=== PATIENT | female | born 1965 | race Caucasian/White ===

== ENCOUNTER 2024-10-30 11:11 | Inpatient (IN) | payer OTHER, SELFPAY ==
[2024-10-30] VITALS (7 sets, daily range): BP systolic 118–151; BP diastolic 55–86; PULSE 54–87; RESP 13–18; TEMP 36.4–36.8; O2SAT 94–99; BMI 31.9
--- NOTE | ~2024-10-30 | MR_ITS ---
EXAMINATION: MRCP CLINICAL INFORMATION: Right upper quadrant abdominal pain. Acute cholecystitis. TECHNIQUE: Axial and coronal T2 haste sequences. Axial and coronal fat sat haste sequences. Coronal oblique T2 fat-sat single slice. MRCP radial T2 fat-sat sequence. COMPARISON: Correlated to CT dated October 30, 2024. FINDINGS: The common bile duct measures 10 mm in maximum diameter. There is a 1 mm round hypointense signal in the distal common bile duct near the sphincter. The common hepatic duct measures 12 mm. No intraluminal signal abnormality. The gallbladder is prominent/distended. Multiple, at least 3, intraluminal less than 13 mm maximal diameter hypointense signal lesions. Gallbladder wall measures 6 mm. There is edema pattern/pericholecystic fluid. The main pancreatic duct measures 24 mm in maximum diameter. The liver measures 19 cm. The spleen measures 10 cm. No peripancreatic fluid collection. Multifocal cystic lesions in the corticomedullary junction of the kidneys. No hydronephrosis in either kidney. Fat-containing umbilical and periumbilical hernias, moderate volume. No nodular lesions in the adrenal glands. No aneurysm in the abdominal aorta. No gross intestinal obstruction pattern. Hiatal hernia, moderate volume. MR/MR MRCP IMPRESSION: Acute calculous cholecystitis and tiny choledocholithiasis. Hepatomegaly. Hiatal hernia, moderate volume. Fat-containing umbilical and periumbilical hernias. Bilateral renal cysts. Electronically signed by: Shan Roberts MD 10/30/2024 03:40 PM EDT
--- NOTE | ~2024-10-30 | FL_ITS ---
EXAMINATION: FL GUIDANCE ONLY HISTORY: ERCP COMPARISON: Correlation is made with an MRCP dated 10/30/2024. TECHNIQUE: Fluoroscopy time: 4.3 minutes. Cumulative Dose: 115 mGy. DAP: 31.3 mGym2 Images: 12. FINDINGS: Images demonstrate a normal caliber common bile duct. No definite filling defects are identified. FL/FL guidance in OR IMPRESSION: Fluoroscopy during procedure. Please see procedure report for additional information. Electronically signed by: Nickolas Purdy MD 10/31/2024 03:13 PM EDT
--- NOTE | ~2024-10-30 | CT_ITS ---
EXAMINATION: CT ABDOMEN PELVIS WITH IV CONTRAST HISTORY: abd pain COMPARISON: There are no prior studies for comparison. TECHNIQUE: CT scan of the abdomen and pelvis was performed following administration of 85 mL Omnipaque 350 using standard departmental protocol. Coronal and sagittal reformatted images were generated and reviewed. Oral contrast material was not administered at the request of the referring physician. This CT exam was performed with one or more of the following dose reduction techniques: automated exposure control, adjustment of the mA and/or kV according to patient size, use of iterative reconstruction technique. DLP: 905 mGy-cm FINDINGS: LOWER CHEST: There is subsegmental atelectasis versus scarring at the right lung base. There is minimal dependent atelectasis at the left lung base. There is no pleural effusion. CARDIOVASCULATURE: The heart is normal in size. There is no pericardial effusion. LIVER: The liver is normal in size and contour, but demonstrates diffusely decreased attenuation, consistent with steatosis. No liver mass is identified. The hepatic and portal veins are patent. GALLBLADDER / BILE DUCTS: The gallbladder is distended and multiple radiolucent calculi are noted. There is moderate wall thickening/pericholecystic fluid and moderate surrounding inflammatory stranding, distant with acute cholecystitis. There is no intra or extrahepatic biliary ductal dilatation. SPLEEN: The spleen is normal in size. No focal splenic lesion is identified. PANCREAS: The pancreas is unremarkable in appearance. ADRENAL GLANDS: Within normal limits. KIDNEYS/RETROPERITONEUM: No renal calculi are identified. There is no hydronephrosis. There are multiple bilateral renal cysts measuring up to 10 mm in size. LYMPH NODES: No abdominal or pelvic lymphadenopathy. VASCULATURE: The abdominal aorta is normal in caliber. MESENTERY/PERITONEUM: No free fluid. No masses. There is no free intraperitoneal gas. STOMACH: There is a small hiatal hernia. The remainder of the stomach is collapsed. SMALL BOWEL: The small bowel is normal in caliber. COLON: There is diverticulosis of the descending and sigmoid colon, without evidence of diverticulitis. APPENDIX: Normal. URINARY BLADDER/PELVIC ORGANS: The urinary bladder is collapsed, limiting evaluation. The patient is status post hysterectomy. BONES / SOFT TISSUES: There is a fat-containing umbilical hernia. The bones are intact. CT/CT abdomen pelvis w IV con IMPRESSION: Acute cholecystitis as described. Electronically signed by: Nickolas Purdy MD 10/30/2024 01:38 PM EDT
--- NOTE | 2024-10-30 11:26 | ED_ITS ---
HPI - General Adult General Chief complaint: Abdominal Pain Stated complaint: BACK PAIN SINCE MONDAY,?BLOOD IN URINE PER EMS Time Seen by Provider: 10/30/24 11:26 Source: patient, family (patient's and son) and EMS Mode of arrival: EMS Limitations: no limitations History of Present Illness ED Provider: Stephani Milan PA-C HPI narrative: 59 year old female with PMHx HTN presenting to the ED c/o sudden onset epigastric pain radiating to the R upper back since last night. Reports thought she might have pulled a lower back muscle Monday after reaching for wipes while sitting on the toilet, however that constant, dull pain, became much worse suddenly last night. Reports associated symptoms of N/V over 20 times today, feeling hot, but did not check temp. Reports last BM last night. Reports hx umbilical hernia surgery 3+ years ago, partial hysterectomy, and kidney stones 25y+. Denies CP, SOB, diarrhea, numbness/tingling, dysuria. Denies alcohol use, drug use, smoking. Onset (ago): hour(s) Location: abdomen Radiation: back Quality: sharp Pain Consistency: constant Relieving factors: none Associated symptoms: nausea/vomiting Treatments prior to arrival: NSAID Related Data Allergies Allergy/AdvReac Type Severity Reaction Status Date / Time No Known Allergies Allergy Verified 10/30/24 11:28 Review of Systems 2 Constitutional: Constitutional: Reports no additional constitutional complaints, Denies night sweats and Denies weight loss Comments: Reports feeling hot , did not check temp. Eyes: Eyes: Reports no additional eye complaints, Denies blurry vision, Denies change in vision, Denies diplopia, Denies eye discharge, Denies loss of vision and Denies eye pain ENT: Denies dizziness Cardiovascular: Cardiovascular: Reports no additional cardiovascular complaints, Denies chest pain, Denies lightheadedness, Denies Loss of Consciousness and Denies dyspnea Respiratory: Respiratory: Reports no additional respiratory complaints and Denies dyspnea Gastrointestinal: Gastrointestinal: Reports no additional gastrointestinal complaints, Reports abdominal pain, Denies melena, Denies hematochezia, Denies change in bowel habits, Denies change in stool character, Denies diarrhea, Reports nausea and Reports vomiting Comments: Reports epigastric pain radiating to R upper back. Genitourinary: Genitourinary: Denies urinary frequency, Denies dysuria, Denies urinary incontinence, Denies urinary hesitancy and Denies urinary urgency Musculoskeletal: Musculoskeletal: Reports no additional musculoskeletal complaints, Denies numbness and Denies tingling Neurologic: Denies dizziness, Denies loss of vision, Denies numbness and Denies tingling Psychiatric: Psychiatric: Reports no additional psychiatric complaints Endocrine: Endocrine: Reports no additional endocrine complaints Hematologic/Lymphatic: Hematologic/Lymphatic: Reports no additional hematologic/lymphatic complaints Allergic/Immunologic: Allergic/Immunologic: Reports no additional allergic/immunologic complaints PMFSH Past Medical History Attestation statement: The following information was validated with the patient. (all information validated with the patient's and son) Source: old records reviewed, obtained from family (Patient's and son provided additional history and confirmed the history provided by the patient.) and nursing notes reviewed Social History Social History Smoked in Last 30 Days: No Use of substances other than those prescribed or required for medical reasons: No Advance Directives: No Advance Directives Information Provided: Yes Do you have a plan to hurt others: No Plan Physical Exam ED Vital Signs: Vital Signs - 24 hr 10/30/24 11:25 10/30/24 11:51 10/30/24 13:44 Temperature 98.1 F Pulse Rate 82 83 87 Respiratory Rate 18 16 16 Blood Pressure 151/55 H 150/86 H 139/75 Pulse Oximetry 99 94 Oxygen Delivery Method Room Air Room Air BMI result Body Mass Index 31.9 Const General: cooperative, no acute distress, alert and awake Nutritional Appearance: well nourished Orientation/consciousness: patient oriented x3 Limitations: no limitations [facility] Head: Yes normal to inspection and Yes atraumatic Ears: hearing grossly normal bilaterally and external ears normal General nose exam: Normal external nose present, no nasal discharge noted and no epistaxis Face and sinus: Yes normal facial exam, No abrasion and No laceration Mouth: Normal oral and palatal mucosa present, no drooling and no muffled voice Eyes General: appearance normal, both eyes and all related structures Periorbital: periorbital findings normal Eyelids: Yes eyelids normal Conjunctivae: conjunctivae normal Pupils: Equal, round and reactive pupils present EOM: EOMs intact bilaterally Neck Neck: Yes normal visual inspection, Yes full ROM and Yes no lymphadenopathy Chest Chest palpation & inspection: normal inspection of the chest Resp Effort & Inspection: normal respiratory effort and able to speak in complete sentences Cardio Rate: regular rate Rhythm: regular rhythm GI Other: Umbilical hernia surgical scar noted. Inspection: Yes normal to inspection, No abdominal wall ecchymosis and Yes scar Palpation (GI): Soft to palpation, not firm, Tenderness to palpation present (GI) in the epigastrum and in the RUQ, Guarding due to palpation present (GI) (mild guarding to epigastric area) and not rigid General: Yes no CVA tenderness Back/Spine/Pelvis Other: Back non-tender to palpation. No bruising, erythema noted on exam. No CVA tenderness. Normal ROM of UE extremities without pain. Back: no CVA tenderness, No erythema, No ecchymosis and No back tenderness Neuro General: patient oriented x3, moves all extremities and CN's II-XI intact bilaterally Cranial nerves: Yes Equal, round and reactive pupils present Cognition (Neuro): normal cognition Extrem General: Yes normal to inspection, Yes full ROM and Yes capillary refill normal Psych Appearance: grossly normal Mental Status: mental status grossly normal Affect: normal affect Attitude: cooperative Thought process: Normal thought process present Thought content: Normal thought content present Insight: Good insight present (Psych) Medications Administered Discontinued Medications Generic Name Dose Route Start Last Admin Trade Name Patricia PRN Reason Stop Dose Admin Iohexol 100 ml 10/30/24 13:20 10/30/24 13:20 Iohexol 350 Mg/Ml 100 Ml Infus..Btl IV 10/30/24 13:21 85 ml ONCE ONE Administration Ketorolac Tromethamine 15 mg 10/30/24 11:39 10/30/24 11:43 Ketorolac Tromethamine 15 Mg/Ml Vial IVPUSH 10/30/24 11:40 15 mg ONCE ONE Administration Morphine Sulfate 4 mg 10/30/24 11:38 10/30/24 11:44 Morphine Sulfate 4 Mg/Ml Cartridge IVPUSH 10/30/24 11:39 4 mg ONCE ONE Administration Protocol Morphine Sulfate 4 mg 10/30/24 13:48 10/30/24 14:20 Morphine Sulfate 4 Mg/Ml Cartridge IVPUSH 10/30/24 13:49 4 mg ONCE ONE Administration Protocol Ondansetron HCl 4 mg 10/30/24 11:38 10/30/24 11:44 Ondansetron Hcl 4 Mg/2 Ml Vial IVPUSH 10/30/24 11:39 4 mg ONCE ONE Administration Medical Decision Making Medical Decision Making [facility] Narrative: Patient is a 59 year old assigned female at with a history of HTN presenting to the emergency department today with abdominal pain, nausea, and vomiting. Patient's physical exam was as noted in the physical exam portion of this note. Patient's blood work showed WBC 11.2, total bili 2.5, direct bili 1.6, AST 228, ALT 198, and an Alk phos of 274. Patient's urine showed no acute process. Patient's EKG was unremarkable. Patient's CT abd/pelvis showed an acute cholecystitis as well as multiple gallstones. I spoke with Dr. Wesley the general surgeon liaison planner who recommended GI consult, MRCP, and admission to the medical team. I spoke with Dr. Bruno who agreed with stat MRCP. I spoke with the hospitalist team who agreed to admission. I explained my physical exam findings as well as all test results to the patient, the patient's son, and the patient's . I answered all questions asked by the patient, the patient's son, and the patient's . Patient received multiple doses of IV morphine which, upon re-evaluation, she stated it helped her symptoms some. Patient verbalized agreement and understanding with this treatment plan and admission. Differential Diagnosis Differential Diagnoses: The differential diagnosis associated with the presentation includes Acute cholecystitis Choledocolithiasis Gallstones Abdominal pain Admission/Observation Consideration of admission/observation: Escalation of care including admission/observation considered Patient admitted as noted in the MDM Rationale portion of this note. Consult Healthcare Provider Management of the patient was discussed with: Hospitalist (agreed to admission as noted in the MDM Rationale portion of this note. ) and Apartment Maintenance (Spoke with GI and general surgery as noted in the MDM Rationale portion of this note. ) Lab Data [facility] Lab Attestation statement: I reviewed the patient's lab results. My interpretation of these results are in the MDM Rationale portion of this note. 10/30/24 12:50 10/30/24 12:50 Labs: Lab Results 10/30/24 10/30/24 Range/Units 12:50 13:43 WBC 11.2 H (4.8-10.8) X10*3/uL RBC 4.78 (4.20-5.50) X10*6/uL Hgb 13.9 (12.0-16.0) g/dl Hct 41.3 (37.0-47.0) % MCV 86.4 (80.0-98.0) fL MCH 29.1 (27.0-33.0) pg MCHC 33.7 (31.0-35.0) g/dl RDW 12.6 (11.0-16.0) % Plt Count 256 (160-400) X10*3/uL MPV 10.5 (9.4-12.3) fL Immature Gran % (Auto) 0.4 (0.0-0.4) % Neut % (Auto) 85.4 H (45-73) % Lymph % (Auto) 5.9 L (20-40) % [place] % (Auto) 7.2 (2-11) % Eos % (Auto) 0.6 (0-4) % Baso % (Auto) 0.5 (0-2) % Lymph # (Auto) 0.7 L (1.2-4.9) X10*3/uL [place] # (Auto) 0.8 (0.1-1.2) X10*3/uL Eos # (Auto) 0.1 (0.0-0.4) X10*3/uL Baso # (Auto) 0.1 (0.0-0.2) X10*3/uL Abs Immat Gran (auto) 0.05 H (0.00-0.03) X10*3/uL Absolute Neuts (auto) 9.6 H (2.0-8.3) x10*3/uL Absolute Nucleated RBC 0.000 (0.0-0.012) X10*3/uL Nucleated RBC % (auto) 0.0 (0.0-0.2) /100WBC PT 12.1 (10.9-12.4) SEC INR 1.0 (0.9-1.1) Sodium 139 (135-145) mmol/L Potassium 3.7 (3.3-5.1) mmol/L Chloride 107 (96-108) mmol/L Carbon Dioxide 24 (22-29) mmol/L Anion Gap 12 (12-20) BUN 14 (9-16) mg/dL Creatinine 0.62 (0.5-1.4) mg/dL Estim Creat Clear Calc 98.9 Estimated GFR > 60 Random Glucose 119 H (60-115) mg/dL Calcium 9.8 (8.4-10.2) mg/dL Magnesium 2.1 (1.6-2.6) mg/dL Total Bilirubin 2.5 H (0.0-1.0) mg/dL Direct Bilirubin 1.6 H (0.0-0.5) mg/dL AST 228 H (5-31) U/L ALT 198 H (0-31) U/L Alkaline Phosphatase 274 H (39-117) U/L Troponin I High Sens < 2.7 (<3.5-17.0) ng/L Total Protein 7.1 (6.5-8.0) g/dL Albumin 4.0 (3.5-5.0) g/dL Amylase 31 (28-100) U/L Lipase 17 (8-78) U/L Urine Color Panther Urine Appearance Clear Urine pH 7.0 (5.0-9.0) Ur Specific [place] 1.010 (1.005-1.025) Urine Protein 100 (2+) H (Neg-Trace) mg/dL Urine Glucose (UA) Negative (Negative) mg/dL Urine Ketones >=80 (Negative) mg/dL Urine Blood Negative (Negative) Urine Nitrite See Note (Negative) Ur Leukocyte Esterase Negative (Negative) Urine RBC 0-2 (0-2) /HPF Urine WBC 0-5 (0-5) /HPF Ur Squamous Epith Cells 11-20 (0-2) /HPF Urine Bacteria Trace (None Seen) Hyaline Casts 0-2 (0-2) /LPF Influenza Type A (PCR) NEGATIVE (Negative) Influenza Type B (PCR) NEGATIVE (Negative) RSV RNA Qual (PCR) NEGATIVE (Negative) SARS-CoV-2 RNA (RT-PCR) NEGATIVE (Negative) Independent Interpretation I performed an independent interpretation of an: EKG and CT Scan Interpretation: My interpretation is in agreement with the radiologist's impression of this imaging study. L Report Number: [id number]: Total DLP = 905.00 mGy-cm EXAMINATION: CT ABDOMEN PELVIS WITH IV CONTRAST HISTORY: abd pain COMPARISON: There are no prior studies for comparison. TECHNIQUE: CT scan of the abdomen and pelvis was performed following administration of 85 mL Omnipaque 350 using standard departmental protocol. Coronal and sagittal reformatted images were generated and reviewed. Oral contrast material was not administered at the request of the referring physician. This CT exam was performed with one or more of the following dose reduction techniques: automated exposure control, adjustment of the mA and/or kV according to patient size, use of iterative reconstruction technique. DLP: 905 mGy-cm FINDINGS: LOWER CHEST: There is subsegmental atelectasis versus scarring at the right lung base. There is minimal dependent atelectasis at the left lung base. There is no pleural effusion. CARDIOVASCULATURE: The heart is normal in size. There is no pericardial effusion. LIVER: The liver is normal in size and contour, but demonstrates diffusely decreased attenuation, consistent with steatosis. No liver mass is identified. The hepatic and portal veins are patent. GALLBLADDER / BILE DUCTS: The gallbladder is distended and multiple radiolucent calculi are noted. There is moderate wall thickening/pericholecystic fluid and moderate surrounding inflammatory stranding, distant with acute cholecystitis. There is no intra or extrahepatic biliary ductal dilatation. SPLEEN: The spleen is normal in size. No focal splenic lesion is identified. PANCREAS: The pancreas is unremarkable in appearance. ADRENAL GLANDS: Within normal limits. KIDNEYS/RETROPERITONEUM: No renal calculi are identified. There is no hydronephrosis. There are multiple bilateral renal cysts measuring up to 10 mm in size. LYMPH NODES: No abdominal or pelvic lymphadenopathy. VASCULATURE: The abdominal aorta is normal in caliber. MESENTERY/PERITONEUM: No free fluid. No masses. There is no free intraperitoneal gas. STOMACH: There is a small hiatal hernia. The remainder of the stomach is collapsed. SMALL BOWEL: The small bowel is normal in caliber. COLON: There is diverticulosis of the descending and sigmoid colon, without evidence of diverticulitis. APPENDIX: Normal. URINARY BLADDER/PELVIC ORGANS: The urinary bladder is collapsed, limiting evaluation. The patient is status post hysterectomy. BONES / SOFT TISSUES: There is a fat-containing umbilical hernia. The bones are intact. CT/CT abdomen pelvis w IV con IMPRESSION: Acute cholecystitis as described. Electronically signed by: Nickolas Purdy MD 10/30/2024 01:38 PM EDT RP Dictated By: Nickolas Purdy MD Signed By: Electronically signed by Nickolas Purdy MD 10/30/24 1338 I independently interpreted this EKG and am in agreement with the below findings: Vent. Rate: 77 BPM Atrial Rate: 77 BPM P-R Int: 144 ms QRS Dur: 82 ms QT Int: 394 ms P-R-T Axes: 27 -22 14 degrees QTcB Int: 445 ms Normal sinus rhythm Minimal voltage criteria for LVH, may be normal variant (R in aVL) Nonspecific ST abnormality Electronically Signed By: Johnnie Mccarthy Dictated By: Johnnie Mccarthy MD Signed By: Electronically signed by Johnnie Mccarthy MD 10/30/24 1423 Radiology Impression Discussion of test interpretation with radiology: I have reviewed the radiologist's reading. Independent Historian Clinical information obtained from an independent historian. History obtained from or confirmed by: Spouse (patient's provided additional history and confirmed the history provided by the patient.) and EMS (EMS provided additional history and confirmed the history provided by the patient.) Critical Care Time Critical Care Time Critical Care Time: Yes Total Critical Care Time: 48 Attestation: I spent 48 minutes of Critical Care Time with this patient. This does not include time spent on separately reported billable procedures. Discharge Plan Discharge Clinical Impression: Cholecystitis, Gallstones Patient Disposition: Admitted As Inpatient Print Language: Omani
--- NOTE | 2024-10-30 11:37 | ECG_ITS ---
Test Reason : ABDOMINAL PAIN Blood Pressure : */* mmHG Vent. Rate : 77 BPM Atrial Rate : 77 BPM P-R Int : 144 ms QRS Dur : 82 ms QT Int : 394 ms P-R-T Axes : 27 -22 14 degrees QTcB Int : 445 ms Normal sinus rhythm Minimal voltage criteria for LVH, may be normal variant ( R in aVL ) Nonspecific ST abnormality Abnormal ECG No previous ECGs available Referred By: Stephani Milan Electronically Signed By: Johnnie Mccarthy
[2024-10-30] MEDS: Ketorolac Tromethamine 15 MG/ML VIAL IVPUSH (11:43)
[2024-10-30] MEDS: Morphine Sulfate 4 MG/ML CARTRIDGE IVPUSH ×2 (11:44→14:20)
[2024-10-30] MEDS: ondansetron HCL 4 MG/2 ML VIAL IVPUSH (11:44)
[2024-10-30 12:54] LABS: MANUAL DIFF FLAG NO
--- NOTE | 2024-10-30 12:54 | PC.NURSE ---
Labs drawn/sent.
[2024-10-30 12:56] LABS: Basophils Absolute Auto 0.1 X10*3/uL (0.0-0.2); Basophils Percent Auto 0.5 % (0-2); Eosinophils Absolute Auto 0.1 X10*3/uL (0.0-0.4); Eosinophils Percent Auto 0.6 % (0-4); Hematocrit 41.3 % (37.0-47.0); Hemoglobin 13.9 g/dl (12.0-16.0); Imm Gran Abs Auto 0.05 X10*3/uL (0.00-0.03); Imm Gran Pct Auto 0.4 % (0.0-0.4); Lymphocytes Absolute Auto 0.7 X10*3/uL (1.2-4.9); Lymphocytes Percent Auto 5.9 % (20-40); Mean Corpuscular HGB Conc 33.7 g/dl (31.0-35.0); Mean Corpuscular Hemoglobin 29.1 pg (27.0-33.0); Mean Corpuscular Volume 86.4 fL (80.0-98.0); Mean Platelet Volume 10.5 fL (9.4-12.3); Monocytes Absolute Auto 0.8 X10*3/uL (0.1-1.2); Monocytes Percent Auto 7.2 % (2-11); Neutrophils Absolute Auto 9.6 x10*3/uL (2.0-8.3); Neutrophils Percent Auto 85.4 % (45-73); Platelet Count 256 X10*3/uL (160-400); Red Blood Count 4.78 X10*6/uL (4.20-5.50); Red Cell Distribution Width 12.6 % (11.0-16.0); White Blood Count 11.2 X10*3/uL (4.8-10.8)
[2024-10-30 13:06] LABS: Prothrombin Time 12.1 SEC (10.9-12.4)
[2024-10-30 13:11] LABS: Alanine Aminotransferase 198 U/L (0-31); Alkaline Phosphatase 274 U/L (39-117); Anion Gap 12 (12-20); Aspartate Amino Transferase 228 U/L (5-31); Bilirubin Total 2.5 mg/dL (0.0-1.0); Blood Urea Nitrogen 14 mg/dL (9-16); Calcium 9.8 mg/dL (8.4-10.2); Carbon Dioxide 24 mmol/L (22-29); Chloride 107 mmol/L (96-108); Creatinine Clr Calc Pharmacy 98.9; Estimated Glomerular Filt Rate > 60; Glucose Random 119 mg/dL (60-115); Magnesium 2.1 mg/dL (1.6-2.6); Potassium 3.7 mmol/L (3.3-5.1); Sodium 139 mmol/L (135-145); Total Protein 7.1 g/dL (6.5-8.0)
[2024-10-30] MEDS: iohexoL 350 MG/ML 100 ML INFUS..BTL IV (13:20)
[2024-10-30 13:23] LABS: Troponin-I High Sensitivity < 2.7 ng/L (<3.5-17.0)
[2024-10-30 13:35] LABS: Influenza A PCR NEGATIVE (Negative); Influenza B PCR NEGATIVE (Negative); Resp Syncy Virus RNA Qual PCR NEGATIVE (Negative); SARS COV2 PCR INHOUSE NEGATIVE (Negative)
[2024-10-30 13:49] LABS: Amylase 31 U/L (28-100); Bilirubin Direct 1.6 mg/dL (0.0-0.5); Lipase 17 U/L (8-78)
[2024-10-30 13:55] LABS: Appearance Urine Clear; Color Urine Orange; Glucose Urine UA Negative (Negative); Leukocyte Esterase Urine Negative (Negative); UMIC TRIGGER UACC YES; Urine Blood Negative (Negative); Urine Ketones >=80 mg/dL (Negative); Urine Protein 100 (2+) mg/dL (Neg-Trace)
[2024-10-30 14:02] LABS: Bacteria Urine Trace (None Seen); Hyaline Casts Urine 0-2 /LPF (0-2); RBC Urine 0-2 /HPF (0-2); WBC Urine 0-5 /HPF (0-5)
--- OUTSIDE RECORDS SUMMARY | 2024-10-30 14:30 | XMS_ITS | Referral Summary ---
Author Organization [facility] Address [address] [place] [address] Care Team Providers Care Aircraft Navigator Name Role Phone Unavailable Primary Care Provider Unavailabl e Allergies No known active allergies Medications folic acid (FOLVITE) 1 mg tablet 07/26/2021 Active methotrexate (TREXALL) 2.5 mg tablet 2.5 mg once a week. 8 tablets 4 tablets in AM 4 tablets PM. Sundays. 06/28/2021 Active multivitamin capsule Take 1 capsule by mouth once a day. Active fluocinolone (Retisert) 0.59 mg implant insert 1 kit by implant route once. 1 each 09/24/2021 12:12 PM EST 09/06/2021 Active Immunizations Immunization Administration Dates Next Due Covid-19, Pfizer, mRNA, [place] valent, PF 30 mcg/0.3 mL dose (for ages 12 and older) 11/10/2020,10/20/2020 Social History Tobacco Use Types Packs/Day Years Used Date Smoking Tobacco: Never Smokeless Tobacco: Never Alcohol Use Standard Drinks/Week Comments Yes 0 (1 standard drink = 0.6 oz pur e alcohol) a glass of wine once a month Comments No Sex and Gender Information Value Date Recorded Sex Assigned at Female 08/26/2021 3:06 PM EST Legal Sex Female 8:13 AM EST Gender Identity Female 08/26/2021 3:06 PM EST Sexual Orientation Straight 10/02/2021 8: 27 AM EST Last Filed Vital Signs Vital Sign Reading Time Taken Comments Blood Pressure 154/93 10/05/2021 11:38 AM EDT Pulse 73 10/05/2021 11:38 AM EDT Temperature 36.7 ??C (98 ??F) 10/05/2021 11:38 AM EDT Respiratory Rate 20 10/05/2021 11:38 AM EDT Oxygen Saturation 95% 10/05/2021 11:38 AM EDT Inhaled Oxygen Concentration - - Weight 76.4 kg (168 lb 6.4 oz) 10/05/2021 10:17 AM EDT Height 162.6 cm (5' 4 ) 08/26/2021 2:57 PM EST Body Mass Index 28.91 08/26/2021 2:57 PM EST Plan of Treatment Not on file Medical Devices Implanted Type Area Turning Machine Set Up Operator Device Identifier Shelf Expiration Date Model / Serial / Lot Retisert Implanted:Qty: 1 on 10/05/2021 by Eddy Deleon MD at [facility] 12/21/2022 [id number] -[id number] / [id number] / [id number] Insurance [facility] Advance Directives * Presumed Full Code (Latest Code Status on File) Date Activated Date Inactivated Comments 10/05/2021 10:29 AM 10/05/2021 2:19 PM
--- OUTSIDE RECORDS SUMMARY | 2024-10-30 14:31 | XMS_ITS | Clinical Summary ---
Author Organization [facility] Address [address] [place] [address] Care Team Providers Care Teletypewriter Installer Name Role Phone Unavailable Primary Care Provider [...] Administration Dates Next Due Covid-19, Pfizer, mRNA, [place] valent, PF 30 mcg/0.3 mL dose (for [...] 08/26/2021 2:57 PM EST Plan of Treatment Health Maintenance Due Date Last Done Comments Cervical Cancer Screening 1965 Cologuard 1965 Colon Cancer Screening 1965 Colonoscopy 1965 FOBT / Fit Test 1965 HIV Screening 1965 HPV and Pap Smear 1965 Pap Smear 1965 Sigmoidoscopy 1965 Hepatitis B Vaccines (1 of 3 - 19+ 3-dose series) 1984 DTaP,Tdap,and Td Vaccines (1 - Tdap) 1987 Pneumococcal Vaccine: 50+ Ye ars (1 of 1 - PCV) 2015 Zoster Vaccines (1 of 2) 2015 COVID-19 Vaccine (3 - 2023- season) 2024, 10/20/2020 Alcohol/Substance Use Screening 07/24/2024 Influenza Vaccine (Season Ended) 2025 04/15/20, 04/28/2018 RSV Vaccine (60+ years old a nd patients) (1 - 1-dose 75+ series) 2040 Medical Devices Implanted Type Area [employer] Member Device Identifier Shelf Expiration Date Model / Serial / Lot Retisert Implanted:Qty: 1 on 10/05/2021 by Eddy Deleon MD at [facility] 12/21/2022 [id number] / [id number] / [id number] Insurance [facility] Advance Directives * Presumed Full Code (Latest Code Status on File) Date Activated Date Inactivated Comments 10/05/2021 10:29 AM 10/05/2021 2:19 PM
--- NOTE | 2024-10-30 14:42 | PC.NURSE ---
Pt to MRCP at this time.
--- NOTE | 2024-10-30 14:50 | P.CONGS_ITS ---
History of Present Illness Consult details Consult date: 10/30/24 Requesting physician: Stephani Milan Narrative: 59-year-old female patient presenting with a one-week history of abdominal pain beginning in the right back and gradually radiating to the right upper quadrant. She initially thought this was from a pulled muscle however for the past 24 hours the pain became more severe and located more in the right upper quadrant and epigastrium. She denies a similar episode of abdominal pain but has had a previous episode of kidney stones. She reports nausea and vomiting but denies fever or chills. Her appetite has been reduced for the past week. She reports being constipated as well. She was unaware of any changes in the color of her skin, urine or stool. She subsequently presented to the emergency department for further evaluation. She was noted to be tender in the right upper quadrant with a positive Rizvi sign. Laboratories reveal a WBC of 11.2, glucose of 119, total bilirubin 2.5, direct bilirubin 1.6, AST 228, ALT 198, alkaline phosphatase 274. The CT abdomen and pelvis was reviewed. Gallbladder was noted to be markedly thickened with a wall thickness of approximately 0.7 cm. No definite radiopaque stones were identified but there is surrounding inflammatory changes around the gallbladder. Common bile duct appears to be dilated, measuring approximately 1.2 cm in the pancreatic head. No definite filling defect is identified. Patient was admitted to the hospitalist service for further management of the obstructive jaundice, acute cholecystitis and possible common bile duct obstruction. Review of Systems 2 Review of Systems: Yes all other systems are reviewed and are negative Constitutional: Constitutional: Denies chills, Denies fever(s) and Reports poor appetite Gastrointestinal: Gastrointestinal: Reports abdominal pain, Reports constipation, Denies diarrhea, Reports nausea and Reports vomiting PMFSH Social History Social History Smoked in Last 30 Days: No Use of substances other than those prescribed or required for medical reasons: No Advance Directives: No Advance Directives Information Provided: Yes Do you have a plan to hurt others: No Plan Meds Allergies Allergy/AdvReac Type Severity Reaction Status Date / Time No Known Allergies Allergy Verified 10/30/24 11:28 Physical Exam 2 Vital Signs: Vital Signs: Last Vital Signs Temp 98.1 F 10/30/24 11:25 Pulse 87 10/30/24 13:44 Resp 16 10/30/24 13:44 BP 139/75 10/30/24 13:44 Pulse Ox 94 10/30/24 13:44 O2 Del Method Room Air 10/30/24 13:44 BMI result Body Mass Index 31.9 Const: General: cooperative and no acute distress Nutritional Appearance: w ell nourished Orientation/consciousness: patient oriented x3 Limitations: no limitations HEENT: Head: Yes normocephalic and Yes atraumatic Ears: hearing grossly normal bilaterally Resp: Effort & Inspection: normal respiratory effort, no audible wheezes, no cough and no respiratory distress Cardio: Jugular venous distension: no JVD GI: Inspection: Yes normal to inspection Palpation (GI): Soft to palpation, Tenderness to palpation present (GI) in the RUQ and Rizvi's sign positive, no guarding, not rigid and No hepatosplenomegaly present Percussion: Yes normal to percussion Auscultation: normal bowel sounds Rectal Exam - Female: d eferred Skin: Other: Warm, dry, no rash Neuro: General: patient oriented x3 Extrem: General: Yes no clubbing, cyanosis or edema Results Labs 10/30/24 12:50 10/30/24 12:50 Labs: Abnormal lab results 10/30/24 10/30/24 Range/Units 12:50 13:43 WBC 11.2 H (4.8-10.8) X10*3/uL Neut % (Auto) 85.4 H (45-73) % Lymph % (Auto) 5.9 L (20-40) % Lymph # (Auto) 0.7 L (1.2-4.9) X10*3/uL Abs Immat Gran (auto) 0.05 H (0.00-0.03) X10*3/uL Absolute Neuts (auto) 9.6 H (2.0-8.3) x10*3/uL Random Glucose 119 H (60-115) mg/dL Total Bilirubin 2.5 H (0.0-1.0) mg/dL Direct Bilirubin 1.6 H (0.0-0.5) mg/dL AST 228 H (5-31) U/L ALT 198 H (0-31) U/L Alkaline Phosphatase 274 H (39-117) U/L Urine Protein 100 (2+) H (Neg-Trace) mg/dL Short CBC 10/30/24 Range/Units 12:50 WBC 11.2 H (4.8-10.8) X10*3/uL Hgb 13.9 (12.0-16.0) g/dl Hct 41.3 (37.0-47.0) % Plt Count 256 (160-400) X10*3/uL BMP 10/30/24 12:50 Sodium 139 Potassium 3.7 Chloride 107 Carbon Dioxide 24 BUN 14 Creatinine 0.62 Calcium 9.8 Liver Function 10/30/24 Range/Units 12:50 Total Bilirubin 2.5 H (0.0-1.0) mg/dL Direct Bilirubin 1.6 H (0.0-0.5) mg/dL AST 228 H (5-31) U/L ALT 198 H (0-31) U/L Alkaline Phosphatase 274 H (39-117) U/L Albumin 4.0 (3.5-5.0) g/dL Urine 10/30/24 Range/Units 13:43 Urine Color [place] Urine Appearance Clear Urine pH 7.0 (5.0-9.0) Ur Specific [place] 1.010 (1.005-1.025) Urine Protein 100 (2+) H (Neg-Trace) mg/dL Urine Glucose (UA) Negative (Negative) mg/dL All other labs normal. Imaging Abdomen CT scan report/results: image reviewed CT scan - pelvis: image reviewed Assessment and Plan (1) Cholecystitis: Status: Acute (2) Gallstones: Status: Acute (3) Choledocholithiasis: Status: Acute Plan 59-year-old female patient with a one-week history of abdominal pain in the right upper quadrant increased over the past 24 hours associated with nausea and vomiting. Examination revealed tenderness in the right upper quadrant with a positive Rizvi sign. Laboratories reveal elevated bilirubin and transaminases suggestive of a common bile duct stone. CT abdomen and pelvis does show evidence of cholecystitis with wall thickening of the gallbladder. My evaluation of the CT does seem to indicate dilated distal common bile duct suggestive of a distal common bile duct stone. No definite stone is identified however. Recommend further evaluation with MRCP. Gastroenterology consultation was also recommended. Patient will probably require laparoscopic cholecystectomy once the common bile duct is determined to be clear of obstruction. Patient expressed understanding and agrees with the plan. Procedures Date of Service Date of Service: 10/30/24
--- NOTE | 2024-10-30 15:57 | PM.EVENT ---
Event Note Date of Service: 10/30/24 Event Note: GI consult dictated ERCP planned for further evaluation/treatment of CBD stone seen on MRI. Time Spent With Patient Time: Total time managing care of this patient today ____ minutes.
[2024-10-30] MEDS: HYDROmorphone HCl 1 MG/ML SYRINGE IVPUSH (16:05)
--- NOTE | 2024-10-30 16:20 | MHC.SHP ---
Pre-Procedural Eval Section A - 24 Hr Update-Section A only Date of Service: 10/30/24 The patient is an INPATIENT: Yes Changes since office visit: No Cold of Flu in the past 2 weeks, No New Medical Problems, No Changes in Medication and No Patient answered all questions The patient has been examined within 24 hours of the surgical procedure. The History & Physical has been completed within 30 days and I have reviewed it.: Yes Section B - Complete if H&P > 30 days Chief Complaint: BACK PAIN SINCE MONDAY,?BLOOD IN URINE PER EMS Allergies: Allergies Allergy/AdvReac Type Severity Reaction Status Date / Time No Known Allergies Allergy Verified 10/30/24 11:28 Plan I have reviewed the history and physical and performed a pertinent physical examination on my patient. No changes have occurred unless specified. Time Spent With Patient Time: Total time managing care of this patient today ____ minutes.
[2024-10-30] MEDS: cefTRIAXone sodium 1 GM VIAL IVPUSH (16:34)
--- NOTE | 2024-10-30 17:43 | PC.NURSE ---
Per GI, indomethacin to be given prior to procedure which is scheduled for 10/31. Pharmacy alerted to retime med to tomorrow and med sent back. Family requests they be alerted when pt is moved to a room and has a procedure time.
--- NOTE | 2024-10-30 17:52 | P.HPHOSP_ITS ---
History of Present Illness Date of Service: 10/30/24 Attending physician on admission: [facility] Chief Complaint: ruq pain 59-year-old female with history of hypertension, cataracts, nephrolithiasis, in autoimmune condition on methylphenidate (?SLE) presented to the ED earlier today accompanied by her son and for evaluation of right upper quadrant pain with associated nausea and vomiting ongoing since last night. She states she also had what she describes as a muscle strain in the right flank 5 days ago but states this did not radiate to the right upper quadrant. At its worse, reports the pain was a 10/10 now a 0/10 following hydromorphone. She denies any diarrhea. Has not had any further vomiting episodes since this morning. Denies any fevers, chills. No history of gallstone disease/stones. She does not consume any regular alcohol. No cigarette smoking or drugs. In the ED, has had stable vital signs though was initially hypertensive to 151/55, 139/75 on admission. There was a very mild leukocytosis of 11.2. Renal function and electrolyte levels normal. Total bilirubin 2.5, direct bilirubin 1.6, AST 28, ALT 198, alkaline phosphatase 274. Amylase and lipase within normal limits. Urinalysis not indicative of infection. CT abdomen/pelvis shows acute cholecystitis. General surgery consulted by ED recommending MRCP which shows acute calculous cholecystitis and tiny choledocholithiasis as well as hepatomegaly and moderate sized hiatal hernia. She does endorse that she has had chronic dysphagia ongoing since childhood as well as heartburn. Gastroenterology recommending ERCP tomorrow morning. In the ED, has received ceftriaxone, ketorolac, morphine, hydromorphone, and ondansetron. Review of Systems 2 Review of Systems: Yes all other systems are reviewed and are negative [facility] Medical History History of nephrolithiasis Cataracts, bilateral Autoimmune disease Hypertension Social History Smoked in Last 30 Days: No Use of substances other than those prescribed or required for medical reasons: No Advance Directives: No Advance Directives Information Provided: Yes Do you have a plan to hurt others: No Plan Meds Allergies Allergy/AdvReac Type Severity Reaction Status Date / Time No Known Allergies Allergy Verified 10/30/24 11:28 Active Medications: Current Medications Acetaminophen (Acetaminophen 325 Mg Tablet) 650 mg PO Q6H PRN PRN Reason: Pain, Mild 1-3,fever,headache Calcium Carbonate (Calcium Carbonate 750 Mg Tab.Chew) 750 mg PO Q4H PRN PRN Reason: Heartburn Enoxaparin Sodium (Enoxaparin Sodium 40 Mg/0.4 Ml Syringe) 40 mg SUBCUT Q24H HORTENSIA Hydromorphone HCl (Hydromorphone Hcl 1 Mg/Ml Syringe) 0.25 mg IVPUSH Q4H PRN; Protocol PRN Reason: Pain, Severe (Pain Scale 7-10) Magnesium Hydroxide (Milk Of Magnesia 30 Ml Oral.Susp) 30 ml PO DAILY PRN PRN Reason: Constipation Melatonin (Melatonin 3 Mg Tablet) 6 mg PO BEDTIME PRN PRN Reason: Insomnia Ondansetron HCl (Ondansetron Hcl 4 Mg/2 Ml Vial) 4 mg IVPUSH Q8H PRN PRN Reason: Nausea and Vomiting Oxycodone HCl (Oxycodone Hcl Immed Release 5 Mg Tablet) 5 mg PO Q6H PRN PRN Reason: Pain, Moderate(Pain Scale 4-6) Sodium Chloride (0.9 % Sodium Chloride Flush 3 Ml Syringe) 3 ml IVFLUSH QSHIFT [facility] Physical Exam 2 Vital Signs and Narrative: Vital Signs: Last Vital Signs Temp 98.1 F 10/30/24 11:25 Pulse 87 10/30/24 13:44 Resp 18 10/30/24 16:05 BP 139/75 10/30/24 13:44 Pulse Ox 94 10/30/24 13:44 O2 Del Method Room Air 10/30/24 13:44 BMI result Body Mass Index 31.9 Constitutional - Awake and Alert, No apparent distress Eyes - PERRLA, EOMI Cardiovascular - S1S2, RRR, No edema Respiratory - Normal lung expansion, Normal respiratory effort, No respiratory distress, CTA bilaterally Gastrointestinal - mild RUQ ttp. negative stern sign. ND; +BS; No rebound or guarding Extremities - no calf tenderness bilaterally, no swelling Skin - Warm/Dry Neurological - Alert & oriented x3 Psychological - Appropriate affect Results Labs 10/30/24 12:50 10/30/24 12:50 Labs: Laboratory Results - last 24 hr 10/30/24 10/30/24 12:50 13:43 MCV 86.4 MCH 29.1 MCHC 33.7 RDW 12.6 Plt Count 256 MPV 10.5 Immature Gran % (Auto) 0.4 Neut % (Auto) 85.4 H Lymph % (Auto) 5.9 L [place] % (Auto) 7.2 Eos % (Auto) 0.6 Baso % (Auto) 0.5 Lymph # (Auto) 0.7 L [place] # (Auto) 0.8 Eos # (Auto) 0.1 Baso # (Auto) 0.1 Abs Immat Gran (auto) 0.05 H Absolute Neuts (auto) 9.6 H Absolute Nucleated RBC 0.000 Nucleated RBC % (auto) 0.0 PT 12.1 INR 1.0 Anion Gap 12 Estim Creat Clear Calc 98.9 Estimated GFR > 60 Random Glucose 119 H Calcium 9.8 Magnesium 2.1 Total Bilirubin 2.5 H Direct Bilirubin 1.6 H AST 228 H ALT 198 H Alkaline Phosphatase 274 H Total Protein 7.1 Albumin 4.0 Amylase 31 Lipase 17 Urine Color [place] Urine Appearance Clear Urine pH 7.0 Ur Specific [place] 1.010 Urine Protein 100 (2+) H Urine Glucose (UA) Negative Urine Ketones >=80 Urine Blood Negative Urine Nitrite See Note Ur Leukocyte Esterase Negative Urine RBC 0-2 Urine WBC 0-5 Ur Squamous Epith Cells 11-20 Urine Bacteria Trace Hyaline Casts 0-2 Influenza Type A (PCR) NEGATIVE Influenza Type B (PCR) NEGATIVE RSV RNA Qual (PCR) NEGATIVE SARS-CoV-2 RNA (RT-PCR) NEGATIVE Imaging Radiologist's Impressions: Impressions Abdomen/Pelvis CT 10/30/24 13:17 IMPRESSION: Acute cholecystitis as described. Electronically signed by: Nickolas Purdy MD 10/30/2024 01:38 PM EDT RP Cholangiopancreatography MRI 10/30/24 14:58 IMPRESSION: Acute calculous cholecystitis and tiny choledocholithiasis. Hepatomegaly. Hiatal hernia, moderate volume. Fat-containing umbilical and periumbilical hernias. Bilateral renal cysts. Electronically signed by: Shan Roberts MD 10/30/2024 03:40 PM EDT RP Assessment and Plan (1) Choledocholithiasis: Status: Acute (2) Cholecystitis: Status: Acute Plan 59-year-old female with history of hypertension, cataracts, nephrolithiasis, in autoimmune condition on methylphenidate (?SLE) admitted for further management of choledocholithiasis Acute choledocolithiasis/cholecystitis MRCP shows acute calculous cholecystitis and tiny choledocholithiasis Mild leukocytosis 11.2, no other SIRS criteria. No sepsis/severe sepsis on admission. Total bilirubin 2.5, direct bilirubin 1.6, AST 228, ALT 198, alkaline phosphatase 274 Pain management using pain scale p.r.n. Antiemetics p.r.n. ERCP a.m. NPO after midnight Gastroenterology consult General surgery consult Follow CBC, liver panel Hypertension Continue amlodipine Cataracts Continue eyedrops Unspecified autoimmune condition ?SLE Continue methylphenidate DVT prophylaxis-Lovenox Full code Patient requires inpatient stay at least 2 midnights for management of acute choledocholithiasis and cholecystitis with significantly elevated LFTs requiring IV antibiotics, ERCP and expert consultation with possible cholecystectomy Quality Stroke Does the patient have a stroke diagnosis?: No VTE Prior VTE?: No VTE Risk Level:: Medical - moderate - high VTE Device Contraindication: Treatment Not Indicated VTE Drug Contraindication: N/A - Med Ordered
--- NOTE | 2024-10-30 18:37 | PHA.MEDREC ---
Pharmacy Consult ? Medication Reconciliation Pharmacy has completed the medication reconciliation. Spoke to patient to confirm medication list. Per patient, she only takes lorazepam 0.5 mg at bedtime as needed for sleep. Last dose of medications was yesterday 10/29/24, except she took bromfenac this morning 10/30/24.
[2024-10-30] MEDS: Enoxaparin Sodium 40 MG/0.4 ML SYRINGE SUBCUT (20:04)
[2024-10-30] MEDS: metroNIDAZOLE/NS 500 MG/100 ML PIGGYBACK 100 MG IV (20:42)
[2024-10-30] MEDS: 0.9 % Sodium Chloride Flush 3 ML SYRINGE IVFLUSH (20:43)
--- NOTE | 2024-10-30 22:00 | CONS_ITS ---
DATE OF SERVICE: 10/30/2024 REFERRING PHYSICIAN: MELIZA Decker REASON FOR CONSULTATION: Elevated liver function tests and cholecystitis. HISTORY OF PRESENT ILLNESS: The patient is a pleasant 59-year-old woman who was admitted to the hospital after presenting to the emergency room today with complaints of right upper quadrant pain radiating into the back. Symptoms began several days prior to admission and became associated with nausea and vomiting. She initially thought she had pulled a muscle and felt hot but did not take her temperature at home. She was evaluated in the emergency department with imaging studies and laboratory studies. These documented elevation of her liver function tests and CT scanning, which is reviewed showed gallstones with pericholecystic fluid and wall thickening, consistent with acute cholecystitis. Bile ducts were not described as dilated. Because of her symptoms and elevated liver function tests, she subsequently underwent MRI imaging, which is reviewed. This is interpreted as showing choledocholithiasis, hepatomegaly, and umbilical and periumbilical hernias. The patient denies any prior history of cholecystitis. She has been seen in consultation by Dr. Wesley and is admitted to the hospital. PAST MEDICAL HISTORY: 1. Hypertension. 2. Umbilical hernia repair. 3. Hysterectomy. 4. Nephrolithiasis. CURRENT MEDICATIONS: Her current medication list is reviewed in the chart. ALLERGIES: THERE ARE NONE REPORTED. FAMILY HISTORY: This is reviewed with the patient and is noncontributory. SOCIAL HISTORY: There is no current tobacco, alcohol, or substance abuse. REVIEW OF SYSTEMS: SKIN: No pruritus. HEENT: Negative. CARDIOPULMONARY: No shortness of breath or chest pain. GASTROINTESTINAL: As above. GENITOURINARY: Negative. NEUROPSYCHIATRIC: Negative. PHYSICAL EXAMINATION: GENERAL: Shows a pleasant female, lying comfortably on a stretcher. VITAL SIGNS: Reviewed in the electronic medical record and are stable. SKIN: Anicteric. HEENT: Shows no scleral icterus. NECK: Without lymphadenopathy or thyromegaly. LUNGS: Clear. HEART: Shows a regular rate and rhythm. S1, S2. No murmur. ABDOMEN: Soft without focal masses or tenderness. Bowel sounds are present. No organomegaly is noted. There is some mild tenderness to palpation in the right upper quadrant. There is no rebound or guarding. EXTREMITIES: Without edema. LABORATORY DATA AND IMAGING STUDIES: Reviewed. IMPRESSION: Common bile duct stone. I have discussed with her ERCP including risks and benefits of the procedure. She understands these and agrees to proceed. This will be arranged for tomorrow and then she can be scheduled for laparoscopic cholecystectomy pending her surgical availability. Thanks for asking me to see her. I will follow her in the hospital with you. MD DEA Hooks/JENNY / [phone]
[2024-10-30] MEDS: HYDROmorphone HCl 1 MG/ML SYRINGE 0.25 MG IVPUSH (23:25)
[2024-10-31] VITALS (11 sets, daily range): BP systolic 129–155; BP diastolic 62–87; PULSE 70–90; RESP 12–18; TEMP 36.1–36.8; O2SAT 91–97
[2024-10-31] MEDS: HYDROmorphone HCl 1 MG/ML SYRINGE 0.25 MG IVPUSH ×2 (04:25→09:34)
[2024-10-31] MEDS: metroNIDAZOLE/NS 500 MG/100 ML PIGGYBACK 100 MG IV ×3 (05:50→18:32)
[2024-10-31 06:30] LABS: MANUAL DIFF FLAG NO
[2024-10-31 06:34] LABS: Basophils Percent Auto 0.4 % (0-2); Eosinophils Percent Auto 0.3 % (0-4); Hematocrit 40.9 % (37.0-47.0); Hemoglobin 13.2 g/dl (12.0-16.0); Imm Gran Abs Auto 0.06 X10*3/uL (0.00-0.03); Imm Gran Pct Auto 0.5 % (0.0-0.4); Lymphocytes Absolute Auto 0.9 X10*3/uL (1.2-4.9); Lymphocytes Percent Auto 8.1 % (20-40); Mean Corpuscular HGB Conc 32.3 g/dl (31.0-35.0); Mean Corpuscular Hemoglobin 28.6 pg (27.0-33.0); Mean Corpuscular Volume 88.7 fL (80.0-98.0); Mean Platelet Volume 10.5 fL (9.4-12.3); Monocytes Absolute Auto 0.9 X10*3/uL (0.1-1.2); Monocytes Percent Auto 8.2 % (2-11); Neutrophils Percent Auto 82.5 % (45-73); Platelet Count 294 X10*3/uL (160-400); Red Blood Count 4.61 X10*6/uL (4.20-5.50); White Blood Count 10.9 X10*3/uL (4.8-10.8)
[2024-10-31 06:52] LABS: Alanine Aminotransferase 690 U/L (0-31); Albumin Level 3.8 g/dL (3.5-5.0); Alkaline Phosphatase 499 U/L (39-117); Anion Gap 15 (12-20); Aspartate Amino Transferase 625 U/L (5-31); Bilirubin Direct 3.3 mg/dL (0.0-0.5); Bilirubin Total 4.2 mg/dL (0.0-1.0); Blood Urea Nitrogen 20 mg/dL (9-16); Carbon Dioxide 26 mmol/L (22-29); Chloride 106 mmol/L (96-108); Creatinine Clr Calc Pharmacy 103.9; Estimated Glomerular Filt Rate > 60; Glucose Random 112 mg/dL (60-115); Potassium 4.2 mmol/L (3.3-5.1); Sodium 143 mmol/L (135-145)
--- NOTE | 2024-10-31 08:14 | PM.PNGS ---
Subjective Subjective Date of Service: 10/31/24 Interval history: Patient is awaiting ERCP today. MRCP confirms distal common bile duct stone. Patient continues to have abdominal pain right upper quadrant but reports being hungry. Physical Exam Vital Signs: Vital Signs: Last Vital Signs Temp 98.1 F 10/31/24 07:21 Pulse 90 10/31/24 07:21 Resp 18 10/31/24 07:21 BP 144/75 H 10/31/24 07:21 Pulse Ox 93 10/31/24 07:21 O2 Del Method Room Air 10/31/24 07:21 BMI result Body Mass Index 31.9 Const: General: no acute distress Nutritional Appearance: well nourished Orientation/consciousness: patient oriented x3 Resp: Effort & Inspection: normal respiratory effort and no cough GI: Inspection: Yes normal to inspection Palpation (GI): Soft to palpation, Tenderness to palpation present (GI) in the RUQ, no guarding and not rigid Skin: General skin exam: jaundice Neuro: General: patient oriented x3 Objective Data Active Medications Acetaminophen (Acetaminophen 325 Mg Tablet) 650 mg PO Q6H PRN PRN Reason: Pain, Mild 1-3,fever,headache Calcium Carbonate (Calcium Carbonate 750 Mg Tab.Chew) 750 mg PO Q4H PRN PRN Reason: Heartburn Ceftriaxone Sodium (Ceftriaxone Sodium 1 Gm Vial) 1 gm IVPUSH Q24H [facility] Hydromorphone HCl (Hydromorphone Hcl 1 Mg/Ml Syringe) 0.25 mg IVPUSH Q4H PRN; Protocol PRN Reason: Pain, Severe (Pain Scale 7-10) Last Admin: 10/31/24 04:25 Dose: 0.25 mg Documented By: TRISTIN Metronidazole (Flagyl) 500 mg in 100 mls @ 100 mls/hr IV Q8H [facility] Last Infusion: 10/31/24 07:32 Dose: Infused Documented By: DINAH Magnesium Hydroxide (Milk Of Magnesia 30 Ml Oral.Susp) 30 ml PO DAILY PRN PRN Reason: Constipation Melatonin (Melatonin 3 Mg Tablet) 6 mg PO BEDTIME PRN PRN Reason: Insomnia Ondansetron HCl (Ondansetron Hcl 4 Mg/2 Ml Vial) 4 mg IVPUSH Q8H PRN PRN Reason: Nausea and Vomiting Oxycodone HCl (Oxycodone Hcl Immed Release 5 Mg Tablet) 5 mg PO Q6H PRN PRN Reason: Pain, Moderate(Pain Scale 4-6) Sodium Chloride (0.9 % Sodium Chloride Flush 3 Ml Syringe) 3 ml IVFLUSH QSHIFT [facility] Last Admin: 10/30/24 20:43 Dose: 3 ml Documented By: SIMEON Labs 10/31/24 05:58 10/31/24 05:58 Labs: Laboratory Results - last 24 hr 10/30/24 10/30/24 10/31/24 12:50 13:43 05:58 MCV 86.4 88.7 MCH 29.1 28.6 MCHC 33.7 32.3 RDW 12.6 13.0 Plt Count 256 294 MPV 10.5 10.5 Immature Gran % (Auto) 0.4 0.5 H Neut % (Auto) 85.4 H 82.5 H Lymph % (Auto) 5.9 L 8.1 L [place] % (Auto) 7.2 8.2 Eos % (Auto) 0.6 0.3 Baso % (Auto) 0.5 0.4 Lymph # (Auto) 0.7 L 0.9 L [place] # (Auto) 0.8 0.9 Eos # (Auto) 0.1 0.0 Baso # (Auto) 0.1 0.0 Abs Immat Gran (auto) 0.05 H 0.06 H Absolute Neuts (auto) 9.6 H 9.0 H Absolute Nucleated RBC 0.000 0.000 Nucleated RBC % (auto) 0.0 0.0 PT 12.1 INR 1.0 Anion Gap 12 15 Estim Creat Clear Calc 98.9 103.9 Estimated GFR > 60 > 60 Random Glucose 119 H 112 Calcium 9.8 10.0 Magnesium 2.1 Total Bilirubin 2.5 H 4.2 H Direct Bilirubin 1.6 H 3.3 H AST 228 H 625 H ALT 198 H 690 H Alkaline Phosphatase 274 H 499 H Total Protein 7.1 7.0 Albumin 4.0 3.8 Amylase 31 Lipase 17 Urine Color [place] Urine Appearance Clear Urine pH 7.0 Ur Specific [place] 1.010 Urine Protein 100 (2+) H Urine Glucose (UA) Negative Urine Ketones >=80 Urine Blood Negative Urine Nitrite See Note Ur Leukocyte Esterase Negative Urine RBC 0-2 Urine WBC 0-5 Ur Squamous Epith Cells 11-20 Urine Bacteria Trace Hyaline Casts 0-2 Influenza Type A (PCR) NEGATIVE Influenza Type B (PCR) NEGATIVE RSV RNA Qual (PCR) NEGATIVE SARS-CoV-2 RNA (RT-PCR) NEGATIVE Procedures Date of Service Date of Service: 10/31/24 Progress Note: A&P Assessment and plan (1) Cholecystitis: Status: Acute (2) Gallstones: Status: Acute (3) Choledocholithiasis: Status: Acute (4) Acute cholecystitis due to biliary calculus: Status: Acute Plan 59-year-old female patient presenting with right upper quadrant abdominal pain of 1 week's duration found to have evidence of acute cholecystitis, choledocholithiasis with the elevation of bilirubin and transaminases. MRCP confirmed a distal common bile duct stone with dilation of the CBD. Patient was scheduled for ERCP later today. I have tentatively placed her on the OR schedule for tomorrow for laparoscopic cholecystectomy. I reviewed the procedure, risks, and alternatives in detail and she consents to a laparoscopic or possible open cholecystectomy. Time Spent With Patient Time: Total time managing care of this patient today ____ minutes. Quality Stroke Does the patient have a stroke diagnosis?: No VTE Prior VTE?: No VTE Risk Level:: Medical - moderate - high VTE Device Contraindication: Treatment Not Indicated VTE Drug Contraindication: N/A - Med Ordered
[2024-10-31] MEDS: 0.9 % Sodium Chloride Flush 3 ML SYRINGE IVFLUSH ×2 (09:35→15:41)
--- NOTE | 2024-10-31 09:46 | MHC.CM.PN ---
CM MET WITH PT AT BEDSIDE. PT LIVES WITH HER SPOUSE AND SON AND IS FUNCTIONALLY INDEPENDENT. PT IS EMPLOYED F/T. +HCP, WILL EMAIL COPY. PCP DR. GOODMAN DP: HOME, NO SERVICES ANTICIPATED. PT'S SPOUSE WILL TRANSPORT HOME. CM WILL CONTINUE TO FOLLOW FOR ANY CHANGE TO DC PLAN/NEEDS.
--- NOTE | 2024-10-31 11:26 | HO.PM.IMPN ---
Subjective Subjective Date of Service: 10/31/24 Interval History: abd pain Physical Exam Vital Signs: Vital Signs: Last Vital Signs Temp 98.1 F 10/31/24 07:21 Pulse 90 10/31/24 07:21 Resp 18 10/31/24 07:21 BP 144/75 H 10/31/24 07:21 Pulse Ox 93 10/31/24 07:21 O2 Del Method Room Air 10/31/24 07:21 BMI result Body Mass Index 31.9 General: AO X 3, no acute distress Resp: CTA bilateral, no accessory muscles used CVS: S1,S2,RRR GI: soft, non tender, non distended Neuro: motor grossly intact, alert Psych: appropriate affect, appropriate insight Objective Data Active Medications Acetaminophen (Acetaminophen 325 Mg Tablet) 650 mg PO Q6H PRN PRN Reason: Pain, Mild 1-3,fever,headache Calcium Carbonate (Calcium Carbonate 750 Mg Tab.Chew) 750 mg PO Q4H PRN PRN Reason: Heartburn Ceftriaxone Sodium (Ceftriaxone Sodium 1 Gm Vial) 1 gm IVPUSH Q24H [facility] Hydromorphone HCl (Hydromorphone Hcl 1 Mg/Ml Syringe) 0.25 mg IVPUSH Q4H PRN; Protocol PRN Reason: Pain, Severe (Pain Scale 7-10) Last Admin: 10/31/24 09:34 Dose: 0.25 mg Documented By: DINAH Metronidazole (Flagyl) 500 mg in 100 mls @ 100 mls/hr IV Q8H [facility] Last Infusion: 10/31/24 07:32 Dose: Infused Documented By: DINAH Magnesium Hydroxide (Milk Of Magnesia 30 Ml Oral.Susp) 30 ml PO DAILY PRN PRN Reason: Constipation Melatonin (Melatonin 3 Mg Tablet) 6 mg PO BEDTIME PRN PRN Reason: Insomnia Ondansetron HCl (Ondansetron Hcl 4 Mg/2 Ml Vial) 4 mg IVPUSH Q8H PRN PRN Reason: Nausea and Vomiting Oxycodone HCl (Oxycodone Hcl Immed Release 5 Mg Tablet) 5 mg PO Q6H PRN PRN Reason: Pain, Moderate(Pain Scale 4-6) Sodium Chloride (0.9 % Sodium Chloride Flush 3 Ml Syringe) 3 ml IVFLUSH QSHIFT [facility] Last Admin: 10/31/24 09:35 Dose: 3 ml Documented By: DINAH Labs 10/31/24 05:58 10/31/24 05:58 Labs: Laboratory Results - last 24 hr 10/30/24 10/30/24 10/31/24 12:50 13:43 05:58 MCV 86.4 88.7 MCH 29.1 28.6 MCHC 33.7 32.3 RDW 12.6 13.0 Plt Count 256 294 MPV 10.5 10.5 Immature Gran % (Auto) 0.4 0.5 H Neut % (Auto) 85.4 H 82.5 H Lymph % (Auto) 5.9 L 8.1 L [place] % (Auto) 7.2 8.2 Eos % (Auto) 0.6 0.3 Baso % (Auto) 0.5 0.4 Lymph # (Auto) 0.7 L 0.9 L [place] # (Auto) 0.8 0.9 Eos # (Auto) 0.1 0.0 Baso # (Auto) 0.1 0.0 Abs Immat Gran (auto) 0.05 H 0.06 H Absolute Neuts (auto) 9.6 H 9.0 H Absolute Nucleated RBC 0.000 0.000 Nucleated RBC % (auto) 0.0 0.0 PT 12.1 INR 1.0 Anion Gap 12 15 Estim Creat Clear Calc 98.9 103.9 Estimated GFR > 60 > 60 Random Glucose 119 H 112 Calcium 9.8 10.0 Magnesium 2.1 Total Bilirubin 2.5 H 4.2 H Direct Bilirubin 1.6 H 3.3 H AST 228 H 625 H ALT 198 H 690 H Alkaline Phosphatase 274 H 499 H Total Protein 7.1 7.0 Albumin 4.0 3.8 Amylase 31 Lipase 17 Urine Color [place] Urine Appearance Clear Urine pH 7.0 Ur Specific [place] 1.010 Urine Protein 100 (2+) H Urine Glucose (UA) Negative Urine Ketones >=80 Urine Blood Negative Urine Nitrite See Note Ur Leukocyte Esterase Negative Urine RBC 0-2 Urine WBC 0-5 Ur Squamous Epith Cells 11-20 Urine Bacteria Trace Hyaline Casts 0-2 Influenza Type A (PCR) NEGATIVE Influenza Type B (PCR) NEGATIVE RSV RNA Qual (PCR) NEGATIVE SARS-CoV-2 RNA (RT-PCR) NEGATIVE Assessment and Plan (1) Gallstones: Status: Acute Plan 59F PMH hypertension, cataracts, nephrolithiasis, unspecified autoimmune condition on mycophenolate, presented with abdominal pain Acute choledocholithiasis and cholecystitis Plan for ERCP today Pain control Eventual plan for cholecystectomy Faye Dalton Unspecified autoimmune condition Continue mycophenolate Hypertension Amlodipine DVT prophylaxis-mechanical, pending ERCP Full code reason for continued hospitalization: Pain control, plan for cholecystectomy Quality Stroke Does the patient have a stroke diagnosis?: No VTE Prior VTE?: No VTE Risk Level:: Medical - moderate - high VTE Device Contraindication: Treatment Not Indicated VTE Drug Contraindication: N/A - Med Ordered
[2024-10-31] MEDS: Lactated Ringers 1,000 ML 80 ML IVCONT ×2 (13:44→15:53)
--- NOTE | 2024-10-31 13:48 | HO.ANESPROP2 ---
[facility], [facility] Active Problems Active Problems: All Active Problems Acute cholecystitis due to biliary calculus (Acute) Choledocholithiasis (Acute) Gallstones (Acute) Cholecystitis (Acute) Past Medical History Medical History History of nephrolithiasis Cataracts, bilateral Autoimmune disease Hypertension Family History Family history of problems with anesthesia: No Surgical History History of Problems with Anesthesia: No Social History Social History Household Members: Spouse Housing: House Do you presently have visiting nurse or other home services: No Patient Tobacco Use Status: Never used Tobacco Second Hand Smoke Exposure: No service: No Meds Allergies Allergy/AdvReac Type Severity Reaction Status Date / Time No Known Allergies Allergy Verified 10/30/24 11:28 Active Medications: Current Medications Acetaminophen (Acetaminophen 325 Mg Tablet) 650 mg PO Q6H PRN PRN Reason: Pain, Mild 1-3,fever,headache Amlodipine Besylate (Amlodipine Besylate 2.5 Mg Tablet) 2.5 mg PO DAILY [facility]; Protocol Calcium Carbonate (Calcium Carbonate 750 Mg Tab.Chew) 750 mg PO Q4H PRN PRN Reason: Heartburn Ceftriaxone Sodium (Ceftriaxone Sodium 1 Gm Vial) 1 gm IVPUSH Q24H [facility] Hydromorphone HCl (Hydromorphone Hcl 1 Mg/Ml Syringe) 0.25 mg IVPUSH Q4H PRN; Protocol PRN Reason: Pain, Severe (Pain Scale 7-10) Last Admin: 10/31/24 09:34 Dose: 0.25 mg Metronidazole (Flagyl) 500 mg in 100 mls @ 100 mls/hr IV Q8H [facility] Last Infusion: 10/31/24 13:36 Dose: Infused Lactated Ringer's (Lr) 1,000 mls @ 80 mls/hr IVCONT .[id number] [facility] Last Admin: 10/31/24 13:44 Dose: 80 mls/hr Lorazepam (Lorazepam 0.5 Mg Tablet) 0.5 mg PO BEDTIME PRN PRN Reason: Insomnia Magnesium Hydroxide (Milk Of Magnesia 30 Ml Oral.Susp) 30 ml PO DAILY PRN PRN Reason: Constipation Melatonin (Melatonin 3 Mg Tablet) 6 mg PO BEDTIME PRN PRN Reason: Insomnia Multivitamins/Vitamin C (Multivitamin Tablet) 1 tab PO DAILY [facility] Non-Formulary Medication (Bromfenac) 1 drop EYE-RIGHT BID [facility] Non-Formulary Medication (Mycophenolate Mofetil) 1,500 mg PO BID [facility] Omeprazole (Omeprazole 20 Mg Capsule.Dr) 20 mg PO DAILY@06 [facility] Ondansetron HCl (Ondansetron Hcl 4 Mg/2 Ml Vial) 4 mg IVPUSH Q8H PRN PRN Reason: Nausea and Vomiting Oxycodone HCl (Oxycodone Hcl Immed Release 5 Mg Tablet) 5 mg PO Q6H PRN PRN Reason: Pain, Moderate(Pain Scale 4-6) Sodium Chloride (0.9 % Sodium Chloride Flush 3 Ml Syringe) 3 ml IVFLUSH QSHIFT [facility] Last Admin: 10/31/24 09:35 Dose: 3 ml Home Medications ?Medication ?Instructions ?Recorded ?Confirmed ?Last Taken ?Type amlodipine 2.5 mg tablet 2.5 mg PO DAILY 10/30/24 10/30/24 10/29/24 History bromfenac 0.09 % eye drops 1 drp ophthalmic-Right BID 10/30/24 10/30/24 10/30/24 History lorazepam 1 mg tablet 0.5 mg PO BEDTIME PRN Insomnia 10/30/24 10/30/24 Unknown History wefobxcz-cfa-hlfiu ac 400 1 tab PO DAILY 10/30/24 10/30/24 10/29/24 History mcg-calcium carb 500 mg-vit K1 20 mcg tablet (Women's 50 Plus Multivitamin) mycophenolate mofetil 200 mg/mL 1,500 mg PO BID 10/30/24 10/30/24 10/29/24 History oral powder for suspension omeprazole 20 mg tablet,delayed 20 mg PO DAILY@0630 10/30/24 10/30/24 10/29/24 History release Exam Height,Weight and Vital Signs: Height 5 ft 3 in Weight 81.647 kg Last Vital Signs Temp 98.3 F 10/31/24 13:29 Pulse 88 10/31/24 13:29 Resp 16 10/31/24 13:29 BP 151/78 H 10/31/24 13:29 Pulse Ox 91 L 10/31/24 13:29 O2 Del Method Room Air 10/31/24 13:29 Pertinent Lab Results Pertinent Lab Results: Laboratory Tests 10/30/24 10/30/24 10/31/24 12:50 13:43 05:58 WBC 11.2 H 10.9 H RBC 4.78 4.61 Hgb 13.9 13.2 Hct 41.3 40.9 MCV 86.4 88.7 MCH 29.1 28.6 MCHC 33.7 32.3 RDW 12.6 13.0 Plt Count 256 294 MPV 10.5 10.5 Immature Gran % (Auto) 0.4 0.5 H Neut % (Auto) 85.4 H 82.5 H Lymph % (Auto) 5.9 L 8.1 L [place] % (Auto) 7.2 8.2 Eos % (Auto) 0.6 0.3 Baso % (Auto) 0.5 0.4 Lymph # (Auto) 0.7 L 0.9 L [place] # (Auto) 0.8 0.9 Eos # (Auto) 0.1 0.0 Baso # (Auto) 0.1 0.0 Abs Immat Gran (auto) 0.05 H 0.06 H Absolute Neuts (auto) 9.6 H 9.0 H Absolute Nucleated RBC 0.000 0.000 Nucleated RBC % (auto) 0.0 0.0 PT 12.1 INR 1.0 Sodium 139 143 Potassium 3.7 4.2 Chloride 107 106 Carbon Dioxide 24 26 Anion Gap 12 15 BUN 14 20 H Creatinine 0.62 0.59 Estim Creat Clear Calc 98.9 103.9 Estimated GFR > 60 > 60 Random Glucose 119 H 112 Calcium 9.8 10.0 Magnesium 2.1 Total Bilirubin 2.5 H 4.2 H Direct Bilirubin 1.6 H 3.3 H AST 228 H 625 H ALT 198 H 690 H Alkaline Phosphatase 274 H 499 H Troponin I High Sens < 2.7 Total Protein 7.1 7.0 Albumin 4.0 3.8 Amylase 31 Lipase 17 Urine Color [place] Urine Appearance Clear Urine pH 7.0 Ur Specific [place] 1.010 Urine Protein 100 (2+) H Urine Glucose (UA) Negative Urine Ketones >=80 Urine Blood Negative Urine Nitrite See Note Ur Leukocyte Esterase Negative Urine RBC 0-2 Urine WBC 0-5 Ur Squamous Epith Cells 11-20 Urine Bacteria Trace Hyaline Casts 0-2 Influenza Type A (PCR) NEGATIVE Influenza Type B (PCR) NEGATIVE RSV RNA Qual (PCR) NEGATIVE SARS-CoV-2 RNA (RT-PCR) NEGATIVE Airway Mallampati Class: III TM Dist: >3cm Neck ROM: Full Assessment and Plan Assessment Anesthesia Assessment: Anesthesia Plan Discussed and Chart Reviewed Final Anesthetic Review Family History of Problems with Anesthesia: No History of Problems with Anesthesia: No NPO: Yes ASA Class: II and Emergency Final Preanesthetic Review: No Changes in Pt Med Stat, Meds/Allgs Chart Reviewed, Consent Obtained/Reviewed, Anes Risks/Benef Reviewed and DNR Form (If Appl.) Patient Risk: Intermediate Procedure Risk: Low Anesthetic Plan Anesthetic Plan: GA Disposition: Standard PACU
--- NOTE | 2024-10-31 15:13 | P.BOP_ITS ---
Brief Operative Note Date of Service: 10/31/24 Pre-op diagnosis: CBD stones Post-op diagnosis: same (Same) Procedure: ERCP with shincterotomy and removal of two CBD stones Surgeon: Nickolas Bruno MD Anesthesia: MAC Was an Surveillance Supervisor used for this Procedure?: No Estimated blood loss (mL): 0 Pathology: none sent Condition: stable Disposition: PACU
--- NOTE | 2024-10-31 15:15 | PM.EVENT ---
Event Note Date of Service: 10/31/24 Event Note: IM-[id number]-Pdgf note dictated 1. Bulging papilla with a visible small stone impacted at the orifice. 2. Approx 3mm stone was removed with the tip of the sphincterotome, resulting in a gush of somewhat purulent bile followed by a steady flow of the same cloudy bile. 3. Selective cholangiograms revealed good filling of the CBD, intrahepatics, and the Gallbladder 4. Performed an approx. 8-10mm sphincterotomy with further good drainage of cloudy bile noted 5. CBD swept with a 12 mm balloon and 1 more 3-4mm stone was pulled into the duodenum. The 12mm balloon pulled easily into the duodenum as well. F/U cholangiograms were negative for any further filling defects. 6. Pancreas was not cannulated or injected Rec: Clear liqs today, then NPO after MN for planned Lap CCY tomorrow.F/U labs in the AM. Hold all aspirin, NSAIDs, Lovenox, and SQ heparin x 1 week. Thanks Time Spent With Patient Time: Total time managing care of this patient today ____ minutes.
[2024-10-31] MEDS: cefTRIAXone sodium 1 GM VIAL IVPUSH (15:40)
--- NOTE | 2024-10-31 16:01 | OP_ITS ---
DATE OF SERVICE: 10/31/2024 SURGEON: Nickolas Bruno MD INDICATIONS: The patient presents for evaluation of obstructive jaundice and choledocholithiasis seen on MRCP. Full consent has been obtained from her for this, including risks of bleeding, perforation, cholangitis, and pancreatitis. PREOPERATIVE DIAGNOSIS: Choledocholithiasis. POSTOPERATIVE DIAGNOSIS: Choledocholithiasis. PROCEDURE PERFORMED: ERCP with sphincterotomy and removal of common duct stones. ESTIMATED BLOOD LOSS: COMPLICATIONS: ANESTHESIA: General anesthesia and glucagon 0.5 mg IV x1 dose. ASSISTANTS: SPECIMENS: DESCRIPTION OF PROCEDURE: The patient was placed in the semi prone position. The [employer] video duodenoscope was passed in the posterior oropharynx and upper esophagus. The scope entered the stomach and was advanced to pylorus. The duodenum was cannulated to the descending portion. The region of the major papilla was visualized. The papilla was notable for a bulging and downward appearance with a small stone seen in the orifice. The stone was basically removed by manipulating it with the tip of the sphincterotome and the guidewire. Once the stone was dislodged, there was a good gush of cloudy bile and then a steady flow of cloudy bile. I was then able to achieve a selective cannulation of the biliary tree over the straight guidewire. Selective cholangiograms revealed good filling of the intrahepatic bile ducts, extrahepatic bile duct, and the gallbladder. There did not appear to be any definitive filling defects remaining in the extrahepatic bile duct. However, I did perform an approximately 8 to 10 mm sphincterotomy over the guidewire without any immediate complication. This also resulted in a good flow of bile and contrast. I then used a 12 mm balloon to sweep the duct and pulled out 1 more small, less than 5 mm stone. The 12 mm balloon pulled out easily into the duodenum in the fully inflated position. Followup selective cholangiograms did not reveal any further filling defects in the intrahepatics or extrahepatic bile ducts. The pancreas was not injected nor cannulated. At that point, the procedure was terminated. She tolerated the procedure well and was returned to the recovery area in stable condition. IMPRESSION: Choledocholithiasis, status post sphincterotomy and stone removal. PLAN: The patient will be observed overnight. At the present time, she reports that her preprocedure right upper quadrant pain has completely resolved. If stable, she will have the laparoscopic cholecystectomy tomorrow with Dr. Wesley. She will have followup laboratories in the morning as well. This has all been discussed with her . MD ROMAN Leyva/JENNY / [id number] MTDD
[2024-10-31] MEDS: BROMFENAC 0.09% 1 EACH EYE-RIGHT (20:24)
[2024-11-01] VITALS (13 sets, daily range): BP systolic 138–167; BP diastolic 68–94; PULSE 60–78; RESP 12–20; TEMP 36.1–37.2; O2SAT 92–97
[2024-11-01] MEDS: metroNIDAZOLE/NS 500 MG/100 ML PIGGYBACK 100 MG IV ×3 (03:18→18:27)
[2024-11-01] MEDS: Lactated Ringers 1,000 ML 80 ML IVCONT ×4 (03:21→20:58)
[2024-11-01 07:29] LABS: MANUAL DIFF FLAG NO
[2024-11-01 07:35] LABS: Basophils Percent Auto 0.1 % (0-2); Hematocrit 36.6 % (37.0-47.0); Hemoglobin 11.9 g/dl (12.0-16.0); Imm Gran Abs Auto 0.06 X10*3/uL (0.00-0.03); Imm Gran Pct Auto 0.5 % (0.0-0.4); Lymphocytes Absolute Auto 0.8 X10*3/uL (1.2-4.9); Lymphocytes Percent Auto 6.9 % (20-40); Mean Corpuscular HGB Conc 32.5 g/dl (31.0-35.0); Mean Corpuscular Volume 89.3 fL (80.0-98.0); Mean Platelet Volume 10.7 fL (9.4-12.3); Monocytes Absolute Auto 0.6 X10*3/uL (0.1-1.2); Monocytes Percent Auto 5.6 % (2-11); Neutrophils Absolute Auto 9.6 x10*3/uL (2.0-8.3); Neutrophils Percent Auto 86.9 % (45-73); Platelet Count 272 X10*3/uL (160-400); Red Cell Distribution Width 12.8 % (11.0-16.0)
[2024-11-01] MEDS: 0.9 % Sodium Chloride Flush 3 ML SYRINGE IVFLUSH ×2 (08:06→17:53)
--- NOTE | 2024-11-01 08:06 | HO.POSTANES ---
Post Anesthesia Evaluation Post Anesthesia Evaluation Date of Service: 11/01/24 Vital Signs: Vital Signs Temp Pulse Resp BP Pulse Ox O2 Del Method 11/01/24 07:47 97.1 F 64 18 146/72 H 93 Room Air 11/01/24 03:27 97.0 F 63 16 149/68 H 94 Room Air Anesthesia: General Endotracheal-GETA Mental Status: Awake Pain Control: Satisfactory Nausea/Vomiting: None Hydration: Adequate Anesthesia-Related Issues: No Anes. Related Issues
[2024-11-01] MEDS: BROMFENAC 0.09% 1 EACH EYE-RIGHT ×2 (08:09→20:18)
[2024-11-01] MEDS: MYCOPHENOLATE MOFETIL 200 MG/ML 1500 EACH PO ×2 (08:10→20:18)
[2024-11-01 09:10] LABS: Adenovirus F 40/41 Not Detected (Not Detect.); Astrovirus Not Detected (Not Detect.); Campylobacter Not Detected (Not Detect.); Cryptosporidium Not Detected (Not Detect.); Cyclospora cayetanensis Not Detected (Not Detect.); E. coli EAEC Not Detected (Not Detect.); E. coli EPEC Not Detected (Not Detect.); E. coli ETEC Not Detected (Not Detect.); E. coli STEC Not Detected (Not Detect.); Entamoeba histolytica Not Detected (Not Detect.); Giardia lamblia Not Detected (Not Detect.); Norovirus GI/GII Not Detected (Not Detect.); Plesiomonas shigelloides Not Detected (Not Detect.); Rotavirus A Not Detected (Not Detect.); Salmonella Not Detected (Not Detect.); Sapovirus Not Detected (Not Detect.); Shigella sp./EIEC Not Detected (Not Detect.); Vibrio Not Detected (Not Detect.); Vibrio Cholerae Not Detected (Not Detect.); Yersinia enterocolitica Not Detected (Not Detect.)
--- NOTE | 2024-11-01 09:30 | HO.PM.IMPN ---
Subjective Subjective Date of Service: 11/01/24 Interval History: pain improved Physical Exam Vital Signs: Vital Signs: Last Vital Signs Temp 97.1 F 11/01/24 07:47 Pulse 64 11/01/24 07:47 Resp 18 11/01/24 07:47 BP 146/72 H 11/01/24 07:47 Pulse Ox 93 11/01/24 07:47 O2 Del Method Room Air 11/01/24 07:47 O2 Flow Rate 2 10/31/24 15:35 BMI result Body Mass Index 31.9 General: AO X 3, no acute distress Resp: CTA bilateral, no accessory muscles used CVS: S1,S2,RRR GI: soft, non tender, non distended Neuro: motor grossly intact, alert Psych: appropriate affect, appropriate insight Objective Data Active Medications Acetaminophen (Acetaminophen 325 Mg Tablet) 650 mg PO Q6H PRN PRN Reason: Pain, Mild 1-3,fever,headache Amlodipine Besylate (Amlodipine Besylate 2.5 Mg Tablet) 2.5 mg PO DAILY [facility]; Protocol Last Admin: 11/01/24 08:09 Dose: Not Given Documented By: DINAH Non-Admin Reason: Patient Refused Calcium Carbonate (Calcium Carbonate 750 Mg Tab.Chew) 750 mg PO Q4H PRN PRN Reason: Heartburn Ceftriaxone Sodium (Ceftriaxone Sodium 1 Gm Vial) 1 gm IVPUSH Q24H [facility] Last Admin: 10/31/24 15:40 Dose: 1 gm Documented By: DINAH Hydromorphone HCl (Hydromorphone Hcl 1 Mg/Ml Syringe) 0.25 mg IVPUSH Q4H PRN; Protocol PRN Reason: Pain, Severe (Pain Scale 7-10) Last Admin: 10/31/24 09:34 Dose: 0.25 mg Documented By: DINAH Metronidazole (Flagyl) 500 mg in 100 mls @ 100 mls/hr IV Q8H [facility] Last Infusion: 11/01/24 04:54 Dose: Infused Documented By: HALLEY Lactated Ringer's (Lr) 1,000 mls @ 80 mls/hr IVCONT .[id number] [facility] Last Admin: 11/01/24 03:21 Dose: 80 mls/hr Documented By: HALLEY Lorazepam (Lorazepam 0.5 Mg Tablet) 0.5 mg PO BEDTIME PRN PRN Reason: Insomnia Magnesium Hydroxide (Milk Of Magnesia 30 Ml Oral.Susp) 30 ml PO DAILY PRN PRN Reason: Constipation Melatonin (Melatonin 3 Mg Tablet) 6 mg PO BEDTIME PRN PRN Reason: Insomnia Multivitamins/Vitamin C (Multivitamin Tablet) 1 tab PO DAILY [facility] Last Admin: 11/01/24 08:09 Dose: Not Given Documented By: DINAH Non-Admin Reason: Patient Refused Naloxone HCl (Naloxone Hcl 0.4 Mg/Ml Vial) 0.04 mg IVPUSH Q5M PRN PRN Reason: Excessive sedation or RR < 8 Patient Own Medication ( Bromfenac 0.09 % Drops) 1 drop EYE-RIGHT BID [facility] Last Admin: 11/01/24 08:09 Dose: 1 drop Documented By: DINAH Patient Own Medication ( Mycophenolate Mofetil 200 Mg/Ml Suspension) 1,500 mg PO BID [facility] Last Admin: 11/01/24 08:10 Dose: 1,500 mg Documented By: DINAH Omeprazole (Omeprazole 20 Mg Capsule.Dr) 20 mg PO DAILY@0630 [facility] Last Admin: 11/01/24 06:34 Dose: Not Given Documented By: HALLEY Non-Admin Reason: Patient Refused Ondansetron HCl (Ondansetron Hcl 4 Mg/2 Ml Vial) 4 mg IVPUSH Q8H PRN PRN Reason: Nausea and Vomiting Oxycodone HCl (Oxycodone Hcl Immed Release 5 Mg Tablet) 5 mg PO Q6H PRN PRN Reason: Pain, Moderate(Pain Scale 4-6) Sodium Chloride (0.9 % Sodium Chloride Flush 3 Ml Syringe) 3 ml IVFLUSH QSHIFT [facility] Last Admin: 11/01/24 08:06 Dose: 3 ml Documented By: DINAH Labs 11/01/24 07:05 10/31/24 05:58 Labs: Laboratory Results - last 24 hr 10/31/24 11/01/24 19:37 07:05 MCV 89.3 MCH 29.0 MCHC 32.5 RDW 12.8 Plt Count 272 MPV 10.7 Immature Gran % (Auto) 0.5 H Neut % (Auto) 86.9 H Lymph % (Auto) 6.9 L [place] % (Auto) 5.6 Eos % (Auto) 0.0 Baso % (Auto) 0.1 Lymph # (Auto) 0.8 L [place] # (Auto) 0.6 Eos # (Auto) 0.0 Baso # (Auto) 0.0 Abs Immat Gran (auto) 0.06 H Absolute Neuts (auto) 9.6 H Absolute Nucleated RBC 0.000 Nucleated RBC % (auto) 0.0 C. difficile Tox B Gene TNP Assessment and Plan (1) Gallstones: Status: Acute Plan 59F PMH hypertension, cataracts, nephrolithiasis, unspecified autoimmune condition on mycophenolate, presented with abdominal pain Acute choledocholithiasis and cholecystitis s/p ercp 10/31/24 Pain control cholecystectomy today Rocephin, Flagyl Unspecified autoimmune condition Continue mycophenolate Hypertension Amlodipine DVT prophylaxis-mechanical, pending ccy Full code reason for continued hospitalization: Pain control, plan for cholecystectomy Quality Stroke Does the patient have a stroke diagnosis?: No VTE Prior VTE?: No VTE Risk Level:: Medical - moderate - high VTE Device Contraindication: Treatment Not Indicated VTE Drug Contraindication: N/A - Med Ordered
--- NOTE | 2024-11-01 10:15 | PM.PNGS ---
Subjective Subjective Date of Service: 11/01/24 Interval history: Patient underwent successful ERCP yesterday with removal of distal common bile duct stone. She reports feeling much improved this morning with no abdominal pain. Physical Exam Vital Signs: Vital Signs: Last Vital Signs Temp 97.1 F 11/01/24 07:47 Pulse 64 11/01/24 07:47 Resp 18 11/01/24 07:47 BP 146/72 H 11/01/24 07:47 Pulse Ox 93 11/01/24 07:47 O2 Del Method Room Air 11/01/24 07:47 O2 Flow Rate 2 10/31/24 15:35 BMI result Body Mass Index 31.9 Const: General: no acute distress Nutritional Appearance: well nourished Orientation/consciousness: patient oriented x3 Limitations: no limitations Resp: Effort & Inspection: normal respiratory effort, no audible wheezes, no cough and no respiratory distress GI: Inspection: Yes normal to inspection Palpation (GI): Soft to palpation, nontender, no guarding, not rigid and No hepatosplenomegaly present Skin: Other: Warm, dry, no rash Neuro: General: patient oriented x3 Extrem: General: No edema Objective Data Active Medications Acetaminophen (Acetaminophen 325 Mg Tablet) 650 mg PO Q6H PRN PRN Reason: Pain, Mild 1-3,fever,headache Amlodipine Besylate (Amlodipine Besylate 2.5 Mg Tablet) 2.5 mg PO DAILY [facility]; Protocol Last Admin: 11/01/24 08:09 Dose: Not Given Documented By: DINAH Non-Admin Reason: Patient Refused Calcium Carbonate (Calcium Carbonate 750 Mg Tab.Chew) 750 mg PO Q4H PRN PRN Reason: Heartburn Ceftriaxone Sodium (Ceftriaxone Sodium 1 Gm Vial) 1 gm IVPUSH Q24H [facility] Last Admin: 10/31/24 15:40 Dose: 1 gm Documented By: DINAH Hydromorphone HCl (Hydromorphone Hcl 1 Mg/Ml Syringe) 0.25 mg IVPUSH Q4H PRN; Protocol PRN Reason: Pain, Severe (Pain Scale 7-10) Last Admin: 10/31/24 09:34 Dose: 0.25 mg Documented By: DINAH Metronidazole (Flagyl) 500 mg in 100 mls @ 100 mls/hr IV Q8H [facility] Last Infusion: 11/01/24 04:54 Dose: Infused Documented By: HALLEY Lactated Ringer's (Lr) 1,000 mls @ 80 mls/hr IVCONT .[id number] [facility] Last Admin: 11/01/24 03:21 Dose: 80 mls/hr Documented By: HALLEY Lorazepam (Lorazepam 0.5 Mg Tablet) 0.5 mg PO BEDTIME PRN PRN Reason: Insomnia Magnesium Hydroxide (Milk Of Magnesia 30 Ml Oral.Susp) 30 ml PO DAILY PRN PRN Reason: Constipation Melatonin (Melatonin 3 Mg Tablet) 6 mg PO BEDTIME PRN PRN Reason: Insomnia Multivitamins/Vitamin C (Multivitamin Tablet) 1 tab PO DAILY [facility] Last Admin: 11/01/24 08:09 Dose: Not Given Documented By: DINAH Non-Admin Reason: Patient Refused Naloxone HCl (Naloxone Hcl 0.4 Mg/Ml Vial) 0.04 mg IVPUSH Q5M PRN PRN Reason: Excessive sedation or RR < 8 Patient Own Medication ( Bromfenac 0.09 % Drops) 1 drop EYE-RIGHT BID [facility] Last Admin: 11/01/24 08:09 Dose: 1 drop Documented By: DINAH Patient Own Medication ( Mycophenolate Mofetil 200 Mg/Ml Suspension) 1,500 mg PO BID [facility] Last Admin: 11/01/24 08:10 Dose: 1,500 mg Documented By: DINAH Omeprazole (Omeprazole 20 Mg Capsule.Dr) 20 mg PO DAILY@0630 [facility] Last Admin: 11/01/24 06:34 Dose: Not Given Documented By: HALLEY Non-Admin Reason: Patient Refused Ondansetron HCl (Ondansetron Hcl 4 Mg/2 Ml Vial) 4 mg IVPUSH Q8H PRN PRN Reason: Nausea and Vomiting Oxycodone HCl (Oxycodone Hcl Immed Release 5 Mg Tablet) 5 mg PO Q6H PRN PRN Reason: Pain, Moderate(Pain Scale 4-6) Sodium Chloride (0.9 % Sodium Chloride Flush 3 Ml Syringe) 3 ml IVFLUSH QSHIFT [facility] Last Admin: 11/01/24 08:06 Dose: 3 ml Documented By: DINAH Labs 11/01/24 07:05 10/31/24 05:58 Labs: Laboratory Results - last 24 hr 10/31/24 11/01/24 19:37 07:05 MCV 89.3 MCH 29.0 MCHC 32.5 RDW 12.8 Plt Count 272 MPV 10.7 Immature Gran % (Auto) 0.5 H Neut % (Auto) 86.9 H Lymph % (Auto) 6.9 L [place] % (Auto) 5.6 Eos % (Auto) 0.0 Baso % (Auto) 0.1 Lymph # (Auto) 0.8 L [place] # (Auto) 0.6 Eos # (Auto) 0.0 Baso # (Auto) 0.0 Abs Immat Gran (auto) 0.06 H Absolute Neuts (auto) 9.6 H Absolute Nucleated RBC 0.000 Nucleated RBC % (auto) 0.0 Stl C. cayetanensis PCR Not Detected Stool Rotavirus A PCR Not Detected Stl Adenov F 40/41 PCR Not Detected Stool Astrovirus (PCR) Not Detected Stool Campylobacter PCR Not Detected Stool Cryptosporidium PCR Not Detected Stl Sh Tox Pr E STEC PCR Not Detected Stool E coli O157 PCR Not applicable Stl Enterotoxigenic E PCR Not Detected Stool EPEC (PCR) Not Detected Stool EAEC (PCR) Not Detected Stl E. histolytica PCR Not Detected Stool Giardia Lamblia PCR Not Detected Stl P. shigelloides PCR Not Detected Stool Salmonella PCR Not Detected Stool Sapovirus (PCR) Not Detected Stl Shigella/EIEC PCR Not Detected St Y.enterocolitica PCR Not Detected Stool Vibrio (PCR) Not Detected Stl Vibrio cholerae PCR Not Detected Stl Norovirus GI/GII PCR Not Detected C. difficile Tox B Gene TNP Procedures Date of Service Date of Service: 11/01/24 Progress Note: A&P Assessment and plan (1) Choledocholithiasis: Status: Acute (2) Acute cholecystitis due to biliary calculus: Status: Acute Plan 59-year-old female patient presenting with complaints of abdominal pain in the right upper quadrant for 1 week found on workup to have elevated LFTs. MRCP confirmed a common bile duct stone and she is now postop day 1 following ERCP with removal of distal common bile duct stone. Symptomatically she was much improved. I again discussed laparoscopic cholecystectomy and after discussion of the procedure, risks, and alternatives, she consents to a laparoscopic or possible open cholecystectomy. She was scheduled in the OR for later today. Time Spent With Patient Time: Total time managing care of this patient today ____ minutes. Quality Stroke Does the patient have a stroke diagnosis?: No VTE Prior VTE?: No VTE Risk Level:: Medical - moderate - high VTE Device Contraindication: Treatment Not Indicated VTE Drug Contraindication: N/A - Med Ordered
[2024-11-01 10:20] LABS: Alanine Aminotransferase 871 U/L (0-31); Albumin Level 3.3 g/dL (3.5-5.0); Alkaline Phosphatase 566 U/L (39-117); Anion Gap 11 (12-20); Aspartate Amino Transferase 600 U/L (5-31); Bilirubin Direct 2.8 mg/dL (0.0-0.5); Bilirubin Total 3.6 mg/dL (0.0-1.0); Blood Urea Nitrogen 17 mg/dL (9-16); Calcium 9.4 mg/dL (8.4-10.2); Carbon Dioxide 28 mmol/L (22-29); Chloride 110 mmol/L (96-108); Creatinine Clr Calc Pharmacy 117.8; Estimated Glomerular Filt Rate > 60; Glucose Fasting 110 mg/dL (60-99); Potassium 3.7 mmol/L (3.3-5.1); Sodium 145 mmol/L (135-145); Total Protein 6.2 g/dL (6.5-8.0)
--- NOTE | 2024-11-01 13:14 | P.CONAN_ITS ---
HPI - Anesthesia Eval Consult details Narrative: 59 yo female patient for Laparoscopic Cholecystectomy. S/p ERCP yesterday 10/31/24 [facility] Active Problems Active Problems: All Active Problems (Updated 10/31/24 @ 08:15 by Rashard Wesley MD) Acute cholecystitis due to biliary calculus (Acute) Choledocholithiasis (Acute) Gallstones (Acute) Cholecystitis (Acute) Increased BMI. Denies SARMAD Past Medical History Medical History History of nephrolithiasis Cataracts, bilateral Autoimmune disease Hypertension Family History Family history of problems with anesthesia: No Surgical History Surgical History (Updated 11/01/24 @ 13:38 by Camille Austin RN) Hx of bilateral cataract extraction Hx of hernia repair Hx of colonoscopy History of partial hysterectomy History of Problems with Anesthesia: No Social History Social History Household Members: Spouse Housing: House Do you presently have visiting nurse or other home services: No Patient Tobacco Use Status: Never used Tobacco Second Hand Smoke Exposure: No service: No Meds Allergies Allergy/AdvReac Type Severity Reaction Status Date / Time No Known Allergies Allergy Verified 11/01/24 13:38 Active Medications: Current Medications Acetaminophen (Acetaminophen 325 Mg Tablet) 650 mg PO Q6H PRN PRN Reason: Pain, Mild 1-3,fever,headache Amlodipine Besylate (Amlodipine Besylate 2.5 Mg Tablet) 2.5 mg PO DAILY [facility]; Protocol Last Admin: 11/01/24 08:09 Dose: Not Given Calcium Carbonate (Calcium Carbonate 750 Mg Tab.Chew) 750 mg PO Q4H PRN PRN Reason: Heartburn Ceftriaxone Sodium (Ceftriaxone Sodium 1 Gm Vial) 1 gm IVPUSH Q24H [facility] Last Admin: 10/31/24 15:40 Dose: 1 gm Hydromorphone HCl (Hydromorphone Hcl 1 Mg/Ml Syringe) 0.25 mg IVPUSH Q4H PRN; Protocol PRN Reason: Pain, Severe (Pain Scale 7-10) Last Admin: 10/31/24 09:34 Dose: 0.25 mg Metronidazole (Flagyl) 500 mg in 100 mls @ 100 mls/hr IV Q8H [facility] Last Infusion: 11/01/24 11:47 Dose: Infused Lactated Ringer's (Lr) 1,000 mls @ 80 mls/hr IVCONT .[id number] [facility] Last Admin: 11/01/24 03:21 Dose: 80 mls/hr Lorazepam (Lorazepam 0.5 Mg Tablet) 0.5 mg PO BEDTIME PRN PRN Reason: Insomnia Magnesium Hydroxide (Milk Of Magnesia 30 Ml Oral.Susp) 30 ml PO DAILY PRN PRN Reason: Constipation Melatonin (Melatonin 3 Mg Tablet) 6 mg PO BEDTIME PRN PRN Reason: Insomnia Multivitamins/Vitamin C (Multivitamin Tablet) 1 tab PO DAILY [facility] Last Admin: 11/01/24 08:09 Dose: Not Given Naloxone HCl (Naloxone Hcl 0.4 Mg/Ml Vial) 0.04 mg IVPUSH Q5M PRN PRN Reason: Excessive sedation or RR < 8 Patient Own Medication ( Bromfenac 0.09 % Drops) 1 drop EYE-RIGHT BID [facility] Last Admin: 11/01/24 08:09 Dose: 1 drop Patient Own Medication ( Mycophenolate Mofetil 200 Mg/Ml Suspension) 1,500 mg PO BID [facility] Last Admin: 11/01/24 08:10 Dose: 1,500 mg Omeprazole (Omeprazole 20 Mg Capsule.Dr) 20 mg PO DAILY@0630 [facility] Last Admin: 11/01/24 06:34 Dose: Not Given Ondansetron HCl (Ondansetron Hcl 4 Mg/2 Ml Vial) 4 mg IVPUSH Q8H PRN PRN Reason: Nausea and Vomiting Oxycodone HCl (Oxycodone Hcl Immed Release 5 Mg Tablet) 5 mg PO Q6H PRN PRN Reason: Pain, Moderate(Pain Scale 4-6) Sodium Chloride (0.9 % Sodium Chloride Flush 3 Ml Syringe) 3 ml IVFLUSH QSHIFT [facility] Last Admin: 11/01/24 08:06 Dose: 3 ml Home Medications ?Medication ?Instructions ?Recorded ?Confirmed ?Last Taken ?Type amlodipine 2.5 mg tablet 2.5 mg PO DAILY 10/30/24 10/30/24 10/29/24 History bromfenac 0.09 % eye drops 1 drp ophthalmic-Right BID 10/30/24 10/30/24 10/30/24 History lorazepam 1 mg tablet 0.5 mg PO BEDTIME PRN Insomnia 10/30/24 10/30/24 Unknown History [id number]-[id number] ac 400 1 tab PO DAILY 10/30/24 10/30/24 10/29/24 History mcg-calcium carb 500 mg-vit K1 20 mcg tablet (Women's 50 Plus Multivitamin) mycophenolate mofetil 200 mg/mL 1,500 mg PO BID 10/30/24 10/30/24 10/29/24 History oral powder for suspension omeprazole 20 mg tablet,delayed 20 mg PO DAILY@0630 10/30/24 10/30/24 10/29/24 History release Exam Height,Weight and Vital Signs: Height 5 ft 3 in Weight 81.647 kg Last Vital Signs Temp 97.1 F 11/01/24 07:47 Pulse 64 11/01/24 07:47 Resp 18 11/01/24 07:47 BP 146/72 H 11/01/24 07:47 Pulse Ox 93 11/01/24 07:47 O2 Del Method Room Air 11/01/24 07:47 O2 Flow Rate 2 10/31/24 15:35 Vital Signs Temp Pulse Resp BP Pulse Ox O2 Del Method O2 Flow Rate 11/01/24 13:26 99.0 F 74 18 159/94 H 95 Room Air 11/01/24 07:47 97.1 F 64 18 146/72 H 93 Room Air 11/01/24 03:27 97.0 F 63 16 149/68 H 94 Room Air 10/31/24 19:20 98.2 F 70 18 134/62 93 Room Air 10/31/24 16:59 93 Room Air 10/31/24 15:35 97.0 F 75 18 132/82 94 Nasal Cannula 2 10/31/24 15:28 97.4 F 73 17 133/76 95 Nasal Cannula 2 10/31/24 15:14 76 16 129/74 95 Nasal Cannula 2 10/31/24 15:09 86 16 144/82 H 93 Room Air 10/31/24 15:04 81 16 139/87 96 Simple Mask 6 10/31/24 14:59 97.0 F 88 12 155/81 H 97 Simple Mask 4 Pertinent Lab Results Pertinent Lab Results: Laboratory Tests 10/30/24 10/30/24 10/31/24 12:50 13:43 05:58 WBC 11.2 H 10.9 H RBC 4.78 4.61 Hgb 13.9 13.2 Hct 41.3 40.9 MCV 86.4 88.7 MCH 29.1 28.6 MCHC 33.7 32.3 RDW 12.6 13.0 Plt Count 256 294 MPV 10.5 10.5 Immature Gran % (Auto) 0.4 0.5 H Neut % (Auto) 85.4 H 82.5 H Lymph % (Auto) 5.9 L 8.1 L [place] % (Auto) 7.2 8.2 Eos % (Auto) 0.6 0.3 Baso % (Auto) 0.5 0.4 Lymph # (Auto) 0.7 L 0.9 L [place] # (Auto) 0.8 0.9 Eos # (Auto) 0.1 0.0 Baso # (Auto) 0.1 0.0 Abs Immat Gran (auto) 0.05 H 0.06 H Absolute Neuts (auto) 9.6 H 9.0 H Absolute Nucleated RBC 0.000 0.000 Nucleated RBC % (auto) 0.0 0.0 PT 12.1 INR 1.0 Sodium 139 143 Potassium 3.7 4.2 Chloride 107 106 Carbon Dioxide 24 26 Anion Gap 12 15 BUN 14 20 H Creatinine 0.62 0.59 Estim Creat Clear Calc 98.9 103.9 Estimated GFR > 60 > 60 Random Glucose 119 H 112 Fasting Glucose Calcium 9.8 10.0 Magnesium 2.1 Total Bilirubin 2.5 H 4.2 H Direct Bilirubin 1.6 H 3.3 H AST 228 H 625 H ALT 198 H 690 H Alkaline Phosphatase 274 H 499 H Troponin I High Sens < 2.7 Total Protein 7.1 7.0 Albumin 4.0 3.8 Amylase 31 Lipase 17 Urine Color Bureau Urine Appearance Clear Urine pH 7.0 Ur Specific [place] 1.010 Urine Protein 100 (2+) H Urine Glucose (UA) Negative Urine Ketones >=80 Urine Blood Negative Urine Nitrite See Note Ur Leukocyte Esterase Negative Urine RBC 0-2 Urine WBC 0-5 Ur Squamous Epith Cells 11-20 Urine Bacteria Trace Hyaline Casts 0-2 Stl C. cayetanensis PCR Stool Rotavirus A PCR Stl Adenov F 40/41 PCR Stool Astrovirus (PCR) Stool Campylobacter PCR Stool Cryptosporidium PCR Stl Sh Tox Pr E STEC PCR Stool E coli O157 PCR Stl Enterotoxigenic E PCR Stool EPEC (PCR) Stool EAEC (PCR) Stl E. histolytica PCR Stool Giardia Lamblia PCR Stl P. shigelloides PCR Stool Salmonella PCR Stool Sapovirus (PCR) Stl Shigella/EIEC PCR St Y.enterocolitica PCR Stool Vibrio (PCR) Stl Vibrio cholerae PCR Stl Norovirus GI/GII PCR C. difficile Tox B Gene Influenza Type A (PCR) NEGATIVE Influenza Type B (PCR) NEGATIVE RSV RNA Qual (PCR) NEGATIVE SARS-CoV-2 RNA (RT-PCR) NEGATIVE 10/31/24 11/01/24 11/01/24 19:37 07:05 09:30 WBC 11.0 H RBC 4.10 L Hgb 11.9 L Hct 36.6 L MCV 89.3 MCH 29.0 MCHC 32.5 RDW 12.8 Plt Count 272 MPV 10.7 Immature Gran % (Auto) 0.5 H Neut % (Auto) 86.9 H Lymph % (Auto) 6.9 L [place] % (Auto) 5.6 Eos % (Auto) 0.0 Baso % (Auto) 0.1 Lymph # (Auto) 0.8 L [place] # (Auto) 0.6 Eos # (Auto) 0.0 Baso # (Auto) 0.0 Abs Immat Gran (auto) 0.06 H Absolute Neuts (auto) 9.6 H Absolute Nucleated RBC 0.000 Nucleated RBC % (auto) 0.0 PT INR Sodium 145 Potassium 3.7 Chloride 110 H Carbon Dioxide 28 Anion Gap 11 L BUN 17 H Creatinine 0.52 Estim Creat Clear Calc 117.8 Estimated GFR > 60 Random Glucose Fasting Glucose 110 H Calcium 9.4 Magnesium Total Bilirubin 3.6 H Direct Bilirubin 2.8 H AST 600 H ALT 871 H Alkaline Phosphatase 566 H Troponin I High Sens Total Protein 6.2 L Albumin 3.3 L Amylase Lipase Urine Color Urine Appearance Urine pH Ur Specific [place] Urine Protein Urine Glucose (UA) Urine Ketones Urine Blood Urine Nitrite Ur Leukocyte Esterase Urine RBC Urine WBC Ur Squamous Epith Cells Urine Bacteria Hyaline Casts Stl C. cayetanensis PCR Not Detected Stool Rotavirus A PCR Not Detected Stl Adenov F 40 PCR Not Detected Stool Astrovirus (PCR) Not Detected Stool Campylobacter PCR Not Detected Stool Cryptosporidium PCR Not Detected Stl Sh Tox Pr E STEC PCR Not Detected Stool E coli O157 PCR Not applicable Stl Enterotoxigenic E PCR Not Detected Stool EPEC (PCR) Not Detected Stool EAEC (PCR) Not Detected Stl E. histolytica PCR Not Detected Stool Giardia Lamblia PCR Not Detected Stl P. shigelloides PCR Not Detected Stool Salmonella PCR Not Detected Stool Sapovirus (PCR) Not Detected Stl Shigella/EIEC PCR Not Detected St Y.enterocolitica PCR Not Detected Stool Vibrio (PCR) Not Detected Stl Vibrio cholerae PCR Not Detected Stl Norovirus GI/GII PCR Not Detected C. difficile Tox B Gene TNP Influenza Type A (PCR) Influenza Type B (PCR) RSV RNA Qual (PCR) SARS-CoV-2 RNA (RT-PCR) Airway Mallampati Class: II TM Dist: >3cm Neck ROM: Full Loose/Missing/Broken Teeth: Yes (Missing several teeth. Denies broken or loose teeth) Heart: RRR Lungs: CTAB Assessment and Plan Assessment Anesthesia Assessment: Anesthesia Plan Discussed and Chart Reviewed Final Anesthetic Review Family History of Problems with Anesthesia: No History of Problems with Anesthesia: No NPO: Yes ASA Class: III Final Preanesthetic Review: No Changes in Pt Med Stat, Meds/Allgs Chart Reviewed, Consent Obtained/Reviewed and Anes Risks/Benef Reviewed Patient Risk: Intermediate Procedure Risk: Intermediate Assessment/Block/Sedation in SS: Assess/Block/Sedation-SS Anesthetic Plan Anesthetic Plan: GA Disposition: Standard PACU
--- NOTE | 2024-11-01 13:30 | MHC.CM.PN ---
EMR REVIEWED AND PER MD ROUNDS, PT IS NOT MEDICALLY CLEARED FOR DC. PT WILL UNDERGO CHOLECYSTOSCOPY TODAY.
--- NOTE | 2024-11-01 17:00 | P.OP_ITS ---
Operative Note Operative Note Date of Service: 11/01/24 Narrative: Preoperative diagnosis: Acute cholecystitis, cholelithiasis, choledocholithiasis, jaundice Postoperative diagnosis: Same Procedure: Laparoscopic cholecystectomy Surgeon: Rashard Wesley MD Instructor Tap Dancing: George Murrell MD, POPEYE Bledsoe Anesthesia: General endotracheal Indications for procedure: 59-year-old female patient presenting with complaints of right upper quadrant abdominal pain found to have dilated common bile duct and evidence of acute cholecystitis. Subsequent workup with MRCP and ERCP confirmed a common bile duct stone which was removed yesterday by Dr. Bruno. She presents today for laparoscopic or possible open cholecystectomy. Operative findings: Acutely inflamed gallbladder with thick rind and dense adhesions to surrounding stomach and transverse colon. Gallbladder contained large gallstones with purulent bile. Specimen: gallbladder Estimated blood loss: 30 mL Complications: None Drains: Pieter-Bronson 10 Procedure details: Patient was brought to the OR and placed in a supine position. After administering general anesthesia the patient's abdomen was prepped with ChloraPrep and draped in a sterile fashion. A surgical time-out was called the consent confirmed. Patient received preoperative antibiotics and Venodyne boots were in place. Local anesthesia consisting of 0.5% Sensorcaine without epinephrine was infiltrated in a periumbilical region. A 5 mm incision was made above the umbilicus in a transverse fashion. The Veress needle was then inserted while elevating abdominal cavity with towel clips. After positive drop test the abdomen was insufflated to a pressure of 15 mm of mercury. The Veress needle was then removed and a 5 mm trocar inserted. The camera was inserted in the abdomen explored. A 12 mm trocar was then placed in the epigastrium. Two 5 mm trocars placed in the right upper quadrant by the speech language assistant. The patient was placed in reverse Trendelenburg positioning and rotated to the left. The gallbladder was grasped with the fundus and retracted cephalad by the speech language assistant. Dense adhesions were noted to the gallbladder which were bluntly dissected off the liver edge. The infundibulum was then grasped and retracted away from the liver bed, also by the speech language assistant. The Dolphin dissected was then used by the surgeon to dissect the peritoneum off the infundibulum to reveal the junction with the cystic duct. Cystic duct had a thick peel surrounding which was gently dissected free. Cystic artery was noted slightly medial and posterior to the cystic duct. After obtaining a critical view the cystic duct was doubly clipped and divided. The cystic artery was then doubly clipped and divided. The gallbladder was then dissected off the liver bed using electrocautery with an L hook. Hemostasis was assured all times using the electrocautery. When the gallbladder is completely dissected off the liver bed was placed in an Endo-Catch bag and brought out through the epigastric incision. The gallbladder was sent to pathology for further examination. The abdomen was then re-examined. The liver bed was irrigated and suctioned dry. Surgicel was applied to the liver bed and a large Pieter-Bronson drain placed at the liver bed and brought out through the lateral trocar site. CO2 was then evacuated and all trocars removed. Fascia was closed at the epigastric incision using a [id number] 0 Polysorb suture. Skin was closed in all incisions using a subcuticular 4 0 Polysorb suture by both the surgeon and speech language assistant. Sterile dressings consisting of Steri-Strips, 2 x 2 gauze, and Tegaderm were then applied. The patient tolerated the procedure well. Sponge instrument and needle counts reported as correct. The patient was transferred to PACU in stable condition.
[2024-11-01] MEDS: HYDROmorphone HCl 1 MG/ML SYRINGE 0.25 MG IVPUSH (17:20)
[2024-11-01] MEDS: cefTRIAXone sodium 1 GM VIAL IVPUSH (17:23)
[2024-11-01] MEDS: HYDROmorphone HCl 0.5 MG/0.5 ML SYRINGE IVPUSH (23:56)
[2024-11-02] MEDS: metroNIDAZOLE/NS 500 MG/100 ML PIGGYBACK 100 MG IV (02:58)
[2024-11-02 03:54] VITALS: BP 139/76; PULSE 80; RESP 18; TEMP 36.4; O2SAT 97
[2024-11-02] MEDS: Omeprazole 20 MG CAPSULE.DR PO (05:42)
[2024-11-02 06:29] LABS: Hematocrit 36.7 % (37.0-47.0); Hemoglobin 11.7 g/dl (12.0-16.0); Mean Corpuscular HGB Conc 31.9 g/dl (31.0-35.0); Mean Corpuscular Volume 91.1 fL (80.0-98.0); Mean Platelet Volume 10.6 fL (9.4-12.3); Platelet Count 279 X10*3/uL (160-400); Red Blood Count 4.03 X10*6/uL (4.20-5.50); Red Cell Distribution Width 13.2 % (11.0-16.0); White Blood Count 10.5 X10*3/uL (4.8-10.8)
[2024-11-02 06:51] LABS: Alanine Aminotransferase 727 U/L (0-31); Albumin Level 3.1 g/dL (3.5-5.0); Alkaline Phosphatase 516 U/L (39-117); Anion Gap 14 (12-20); Aspartate Amino Transferase 336 U/L (5-31); Bilirubin Direct 1.3 mg/dL (0.0-0.5); Bilirubin Total 1.8 mg/dL (0.0-1.0); Blood Urea Nitrogen 17 mg/dL (9-16); Carbon Dioxide 27 mmol/L (22-29); Chloride 106 mmol/L (96-108); Creatinine Clr Calc Pharmacy 97.2; Estimated Glomerular Filt Rate > 60; Glucose Random 103 mg/dL (60-115); Magnesium 1.9 mg/dL (1.6-2.6); Potassium 4.2 mmol/L (3.3-5.1); Sodium 143 mmol/L (135-145); Total Protein 5.7 g/dL (6.5-8.0)
[2024-11-02] MEDS: HYDROmorphone HCl 0.5 MG/0.5 ML SYRINGE IVPUSH ×2 (07:20→20:00)
[2024-11-02 07:25] VITALS: BP 157/76; PULSE 74; RESP 16; TEMP 36.5; O2SAT 94
--- NOTE | 2024-11-02 08:07 | P.PNIM_ITS ---
Subjective Subjective Date of Service: 11/02/24 Interval History: ruq pain Physical Exam 2 Vital Signs: Vital Signs: Last Vital Signs Temp 97.7 F 11/02/24 07:25 Pulse 74 11/02/24 07:25 Resp 16 11/02/24 07:25 BP 157/76 H 11/02/24 07:25 Pulse Ox 94 11/02/24 07:25 O2 Del Method Nasal Cannula 11/02/24 07:25 O2 Flow Rate 3 11/02/24 07:25 BMI result Body Mass Index 31.9 Const: General: no acute distress Nutritional Appearance: well nourished Orientation/consciousness: patient oriented x3 Limitations: no limitations Resp: Effort & Inspection: normal respiratory effort, no audible wheezes, no cough and no respiratory distress GI: Inspection: Yes normal to inspection Palpation (GI): Soft to palpation, nontender, no guarding, not rigid and No hepatosplenomegaly present Skin: Other: Warm, dry, no rash Neuro: General: patient oriented x3 Extrem: General: No edema Objective Data Active Medications Acetaminophen (Acetaminophen 325 Mg Tablet) 650 mg PO Q6H PRN PRN Reason: Pain, Mild 1-3,fever,headache Amlodipine Besylate (Amlodipine Besylate 2.5 Mg Tablet) 2.5 mg PO DAILY [facility]; Protocol Last Admin: 11/01/24 08:09 Dose: Not Given Documented By: DINAH Non-Admin Reason: Patient Refused Calcium Carbonate (Calcium Carbonate 750 Mg Tab.Chew) 750 mg PO Q4H PRN PRN Reason: Heartburn Ceftriaxone Sodium (Ceftriaxone Sodium 1 Gm Vial) 1 gm IVPUSH Q24H [facility] Last Admin: 11/01/24 17:23 Dose: 1 gm Documented By: CHICA Hydromorphone HCl (Hydromorphone Hcl 0.5 Mg/0.5 Ml Syringe) 0.5 mg IVPUSH Q3H PRN; Protocol PRN Reason: Pain, Severe (Pain Scale 7-10) Last Admin: 11/02/24 07:20 Dose: 0.5 mg Documented By: REGULO Metronidazole (Flagyl) 500 mg in 100 mls @ 100 mls/hr IV Q8H [facility] Last Infusion: 11/02/24 04:04 Dose: Infused Documented By: ANU Lactated Ringer's (Lr) 1,000 mls @ 80 mls/hr IVCONT .[id number] [facility] Last Admin: 11/01/24 20:58 Dose: 80 mls/hr Documented By: ANU Lorazepam (Lorazepam 0.5 Mg Tablet) 0.5 mg PO BEDTIME PRN PRN Reason: Insomnia Magnesium Hydroxide (Milk Of Magnesia 30 Ml Oral.Susp) 30 ml PO DAILY PRN PRN Reason: Constipation Melatonin (Melatonin 3 Mg Tablet) 6 mg PO BEDTIME PRN PRN Reason: Insomnia Multivitamins/Vitamin C (Multivitamin Tablet) 1 tab PO DAILY [facility] Last Admin: 11/01/24 08:09 Dose: Not Given Documented By: DINAH Non-Admin Reason: Patient Refused Patient Own Medication ( Bromfenac 0.09 % Drops) 1 drop EYE-RIGHT BID [facility] Last Admin: 11/01/24 20:18 Dose: 1 drop Documented By: ANU Patient Own Medication ( Mycophenolate Mofetil 200 Mg/Ml Suspension) 1,500 mg PO BID [facility] Last Admin: 11/01/24 20:18 Dose: 1,500 mg Documented By: ANU Omeprazole (Omeprazole 20 Mg Capsule.) 20 mg PO DAILY@0630 [facility] Last Admin: 11/02/24 05:42 Dose: 20 mg Documented By: ANU Ondansetron HCl (Ondansetron Hcl 4 Mg/2 Ml Vial) 4 mg IVPUSH Q8H PRN PRN Reason: Nausea and Vomiting Oxycodone HCl (Oxycodone Hcl Immed Release 5 Mg Tablet) 5 mg PO Q6H PRN PRN Reason: Pain, Moderate(Pain Scale 4-6) Sodium Chloride (0.9 % Sodium Chloride Flush 3 Ml Syringe) 3 ml IVFLUSH QSHIFT [facility] Last Admin: 11/02/24 00:01 Dose: Not Given Documented By: ANU Non-Admin Reason: IV Running Labs 11/02/24 06:07 11/02/24 06:07 Labs: Laboratory Results - last 24 hr 10/31/24 11/01/24 11/02/24 19:37 09:30 06:07 MCV 91.1 MCH 29.0 MCHC 31.9 RDW 13.2 Plt Count 279 MPV 10.6 Absolute Nucleated RBC 0.000 Nucleated RBC % (auto) 0.0 Anion Gap 11 L 14 Estim Creat Clear Calc 117.8 97.2 Estimated GFR > 60 > 60 Random Glucose 103 Fasting Glucose 110 H Calcium 9.4 9.0 Magnesium 1.9 Total Bilirubin 3.6 H 1.8 H Direct Bilirubin 2.8 H 1.3 H AST 600 H 336 H ALT 871 H 727 H Alkaline Phosphatase 566 H 516 H Total Protein 6.2 L 5.7 L Albumin 3.3 L 3.1 L Stl C. cayetanensis PCR Not Detected Stool Rotavirus A PCR Not Detected Stl Adenov F 40/41 PCR Not Detected Stool Astrovirus (PCR) Not Detected Stool Campylobacter PCR Not Detected Stool Cryptosporidium PCR Not Detected Stl Sh Tox Pr E STEC PCR Not Detected Stool E coli O157 PCR Not applicable Stl Enterotoxigenic E PCR Not Detected Stool EPEC (PCR) Not Detected Stool EAEC (PCR) Not Detected Stl E. histolytica PCR Not Detected Stool Giardia Lamblia PCR Not Detected Stl P. shigelloides PCR Not Detected Stool Salmonella PCR Not Detected Stool Sapovirus (PCR) Not Detected Stl Shigella/EIEC PCR Not Detected St Y.enterocolitica PCR Not Detected Stool Vibrio (PCR) Not Detected Stl Vibrio cholerae PCR Not Detected Stl Norovirus GI/GII PCR Not Detected Assessment and Plan (1) Gallstones: Status: Acute Plan 59F PMH hypertension, cataracts, nephrolithiasis, unspecified autoimmune condition on mycophenolate, presented with abdominal pain Acute choledocholithiasis and cholecystitis s/p ercp 10/31/24, lap cholecystectomy 11/01/24 Pain control Rocephin, Flagyl Unspecified autoimmune condition Continue mycophenolate Hypertension Amlodipine DVT prophylaxis-lovenox dispo planning Full code Quality Stroke Does the patient have a stroke diagnosis?: No VTE Prior VTE?: No VTE Risk Level:: Medical - moderate - high VTE Device Contraindication: Treatment Not Indicated VTE Drug Contraindication: N/A - Med Ordered
[2024-11-02] MEDS: MYCOPHENOLATE MOFETIL 200 MG/ML 1500 EACH PO ×2 (08:21→20:01)
[2024-11-02] MEDS: BROMFENAC 0.09% 1 EACH EYE-RIGHT ×2 (08:21→20:00)
[2024-11-02] MEDS: Multivitamin TABLET 1 TAB PO (08:22)
[2024-11-02] MEDS: amLODIPine Besylate 2.5 MG TABLET PO (08:22)
[2024-11-02] MEDS: 0.9 % Sodium Chloride Flush 3 ML SYRINGE IVFLUSH (08:24)
[2024-11-02] MEDS: metroNIDAZOLE 500 MG TABLET PO ×2 (10:32→18:08)
--- NOTE | 2024-11-02 13:46 | PM.PNGS ---
Subjective Subjective Date of Service: 11/02/24 Interval history: Patient evaluated during lunch. Family present. Minimal incisional discomfort. Tolerating her diet. Serosanguineous drainage from ANA drain. LFTs improving Physical Exam Vital Signs: Vital Signs: Last Vital Signs Temp 97.7 F 11/02/24 07:25 Pulse 74 11/02/24 07:25 Resp 16 11/02/24 07:25 BP 157/76 H 11/02/24 07:25 Pulse Ox 94 11/02/24 07:25 O2 Del Method Nasal Cannula 11/02/24 07:25 O2 Flow Rate 3 11/02/24 07:25 BMI result Body Mass Index 31.9 GI: Other: Abdomen corpulent, soft. All dressings clean dry and intact. ANA drain in place. Objective Data Active Medications Acetaminophen (Acetaminophen 325 Mg Tablet) 650 mg PO Q6H PRN PRN Reason: Pain, Mild 1-3,fever,headache Amlodipine Besylate (Amlodipine Besylate 2.5 Mg Tablet) 2.5 mg PO DAILY COUNTS INCLUDE 234 BEDS AT THE [facility]; Protocol Last Admin: 11/02/24 08:22 Dose: 2.5 mg Documented By: REGULO Calcium Carbonate (Calcium Carbonate 750 Mg Tab.Chew) 750 mg PO Q4H PRN PRN Reason: Heartburn Ceftriaxone Sodium (Ceftriaxone Sodium 1 Gm Vial) 1 gm IVPUSH Q24H COUNTS INCLUDE 234 BEDS AT THE [facility] Last Admin: 11/01/24 17:23 Dose: 1 gm Documented By: CHICA Enoxaparin Sodium (Enoxaparin Sodium 40 Mg/0.4 Ml Syringe) 40 mg SUBCUT Q24H COUNTS INCLUDE 234 BEDS AT THE [facility] Hydromorphone HCl (Hydromorphone Hcl 0.5 Mg/0.5 Ml Syringe) 0.5 mg IVPUSH Q3H PRN; Protocol PRN Reason: Pain, Severe (Pain Scale 7-10) Last Admin: 11/02/24 07:20 Dose: 0.5 mg Documented By: REGULO Lactated Ringer's (Lr) 1,000 mls @ 80 mls/hr IVCONT .[id number] COUNTS INCLUDE 234 BEDS AT THE [facility] Last Admin: 11/01/24 20:58 Dose: 80 mls/hr Documented By: ODRISM Lorazepam (Lorazepam 0.5 Mg Tablet) 0.5 mg PO BEDTIME PRN PRN Reason: Insomnia Magnesium Hydroxide (Milk Of Magnesia 30 Ml Oral.Susp) 30 ml PO DAILY PRN PRN Reason: Constipation Melatonin (Melatonin 3 Mg Tablet) 6 mg PO BEDTIME PRN PRN Reason: Insomnia Metronidazole (Metronidazole 500 Mg Tablet) 500 mg PO Q8H COUNTS INCLUDE 234 BEDS AT THE [facility] Last Admin: 11/02/24 10:32 Dose: 500 mg Documented By: REGULO Multivitamins/Vitamin C (Multivitamin Tablet) 1 tab PO DAILY COUNTS INCLUDE 234 BEDS AT THE [facility] Last Admin: 11/02/24 08:22 Dose: 1 tab Documented By: REGULO Patient Own Medication ( Bromfenac 0.09 % Drops) 1 drop EYE-RIGHT BID COUNTS INCLUDE 234 BEDS AT THE [facility] Last Admin: 11/02/24 08:21 Dose: 1 drop Documented By: REGULO Patient Own Medication ( Mycophenolate Mofetil 200 Mg/Ml Suspension) 1,500 mg PO BID COUNTS INCLUDE 234 BEDS AT THE [facility] Last Admin: 11/02/24 08:21 Dose: 1,500 mg Documented By: REGULO Omeprazole (Omeprazole 20 Mg Capsule.Dr) 20 mg PO DAILY@0630 COUNTS INCLUDE 234 BEDS AT THE [facility] Last Admin: 11/02/24 05:42 Dose: 20 mg Documented By: ANU Ondansetron HCl (Ondansetron Hcl 4 Mg/2 Ml Vial) 4 mg IVPUSH Q8H PRN PRN Reason: Nausea and Vomiting Oxycodone HCl (Oxycodone Hcl Immed Release 5 Mg Tablet) 5 mg PO Q6H PRN PRN Reason: Pain, Moderate(Pain Scale 4-6) Sodium Chloride (0.9 % Sodium Chloride Flush 3 Ml Syringe) 3 ml IVFLUSH QSHIFT COUNTS INCLUDE 234 BEDS AT THE [facility] Last Admin: 11/02/24 08:24 Dose: 3 ml Documented By: REGULO Labs 11/02/24 06:07 11/02/24 06:07 Labs: Laboratory Results - last 24 hr 11/02/24 06:07 MCV 91.1 MCH 29.0 MCHC 31.9 RDW 13.2 Plt Count 279 MPV 10.6 Absolute Nucleated RBC 0.000 Nucleated RBC % (auto) 0.0 Anion Gap 14 Estim Creat Clear Calc 97.2 Estimated GFR > 60 Random Glucose 103 Calcium 9.0 Magnesium 1.9 Total Bilirubin 1.8 H Direct Bilirubin 1.3 H AST 336 H ALT 727 H Alkaline Phosphatase 516 H Total Protein 5.7 L Albumin 3.1 L Procedures Date of Service Date of Service: 11/02/24 Progress Note: A&P Assessment and plan (1) Status post laparoscopic cholecystectomy: Status: Acute Plan Patient is having diet as tolerated, encouraged to get out of bed/ambulate, incentive spirometry, ice pack to wound. All questions answered. Anticipate ANA drain removal tomorrow and possible discharge at that time. Continue IV antibiotics. Time Spent With Patient Time: Total time managing care of this patient today ____ minutes. Quality Stroke Does the patient have a stroke diagnosis?: No VTE Prior VTE?: No VTE Risk Level:: Medical - moderate - high VTE Device Contraindication: Treatment Not Indicated VTE Drug Contraindication: N/A - Med Ordered
[2024-11-02] MEDS: Enoxaparin Sodium 40 MG/0.4 ML SYRINGE SUBCUT (14:40)
[2024-11-02 15:28] VITALS: BP 141/71; PULSE 70; RESP 17; TEMP 36.8; O2SAT 93
[2024-11-02] MEDS: cefTRIAXone sodium 1 GM VIAL IVPUSH (16:30)
--- NOTE | 2024-11-02 17:45 | HO.POSTANES ---
Post Anesthesia Evaluation Post Anesthesia Evaluation Date of Service: 11/02/24 Vital Signs: Vital Signs Temp Pulse Resp BP Pulse Ox O2 Del Method O2 Flow Rate 11/02/24 15:28 98.2 F 70 17 141/71 H 93 Room Air 11/02/24 07:25 97.7 F 74 16 157/76 H 94 Nasal Cannula 3 Anesthesia: General Endotracheal-GETA Mental Status: Awake Pain Control: Satisfactory Nausea/Vomiting: None Hydration: Adequate Anesthesia-Related Issues: No Anes. Related Issues
[2024-11-02 19:30] VITALS: BP 146/80; PULSE 78; RESP 18; TEMP 36.7; O2SAT 94
[2024-11-02] MEDS: Lactated Ringers 1,000 ML 80 ML IVCONT (22:39)
[2024-11-03] MEDS: metroNIDAZOLE 500 MG TABLET PO ×2 (02:51→11:38)
[2024-11-03 04:00] VITALS: BP 134/74; PULSE 72; RESP 18; TEMP 36.7; O2SAT 100
[2024-11-03] MEDS: Omeprazole 20 MG CAPSULE.DR PO (05:40)
[2024-11-03 07:37] VITALS: BP 164/94; PULSE 76; RESP 14; TEMP 37.2; O2SAT 93
[2024-11-03] MEDS: amLODIPine Besylate 2.5 MG TABLET PO (08:48)
[2024-11-03] MEDS: Multivitamin TABLET 1 TAB PO (08:49)
[2024-11-03] MEDS: BROMFENAC 0.09% 1 EACH EYE-RIGHT (08:50)
--- NOTE | 2024-11-03 09:15 | PM.DS ---
DS: Providers Provider Date of Service: 11/03/24 Date of admission: 10/30/24 17:47 Date of discharge: 11/03/24 Primary care physician: Onesimo Moss MD Consults: 10/30/24 13:55 Consult to Gastroenterology Stat Consulting Provider: Nickolas Bruno Reason for consultation: acute claribel, possible choledoco 10/30/24 17:47 Consult to Gastroenterology Routine Consulting Provider: Cleve Gresham Reason for consultation: choledocolithiasis, cholecystitis Consult to General Surgery Routine Consulting Provider: [facility] General Surgeons Reason for consultation: Cholecystitis, choledocholithiasis DS: Diagnosis Discharge Diagnosis (1) Status post laparoscopic cholecystectomy: Status: Acute DS: Summary Hospital Course Hospital Course: from initial hpi: 59-year-old female with history of hypertension, cataracts, nephrolithiasis, in autoimmune condition on methylphenidate (?SLE) presented to the ED earlier today accompanied by her son and for evaluation of right upper quadrant pain with associated nausea and vomiting ongoing since last night. She states she also had what she describes as a muscle strain in the right flank 5 days ago but states this did not radiate to the right upper quadrant. At its worse, reports the pain was a 10/10 now a 0/10 following hydromorphone. She denies any diarrhea. Has not had any further vomiting episodes since this morning. Denies any fevers, chills. No history of gallstone disease/stones. She does not consume any regular alcohol. No cigarette smoking or drugs. In the ED, has had stable vital signs though was initially hypertensive to 151/55, 139/75 on admission. There was a very mild leukocytosis of 11.2. Renal function and electrolyte levels normal. Total bilirubin 2.5, direct bilirubin 1.6, AST 28, ALT 198, alkaline phosphatase 274. Amylase and lipase within normal limits. Urinalysis not indicative of infection. CT abdomen/pelvis shows acute cholecystitis. General surgery consulted by ED recommending MRCP which shows acute calculous cholecystitis and tiny choledocholithiasis as well as hepatomegaly and moderate sized hiatal hernia. She does endorse that she has had chronic dysphagia ongoing since childhood as well as heartburn. Gastroenterology recommending ERCP tomorrow morning. In the ED, has received ceftriaxone, ketorolac, morphine, hydromorphone, and ondansetron. hospital course: Patient was admitted for acute choledocholithiasis complicated by acute cholecystitis. She was treated with ceftriaxone Flagyl, underwent ERCP 10/31/2024 and then laparoscopic cholecystectomy 11/01/2024. Symptoms resolved. We will continue 5 more days of Ceftin and follow up with General surgery as outpatient. For unspecified autoimmune condition was continued on mycophenolate. For hypertension continued on amlodipine. Patient is feeling better will be discharged home. Time Attestation Discharge Coordination Time (in mins): 34 Quality: Safe Use of Opioids Does Pt have an Active Cancer Diagnosis on the Problem List?: No Quality: Stroke Does the patient have a stroke diagnosis?: No Physical Exam Vital Signs: Vital Signs: Last Vital Signs Temp 98.9 F 11/03/24 07:37 Pulse 76 11/03/24 07:37 Resp 14 11/03/24 07:37 BP 164/94 H 11/03/24 07:37 Pulse Ox 93 11/03/24 07:37 O2 Del Method Room Air 11/03/24 07:37 O2 Flow Rate 3 11/02/24 07:25 BMI result Body Mass Index 31.9 General: AO X 3, no acute distress Resp: CTA bilateral, no accessory muscles used CVS: S1,S2,RRR Neuro: motor grossly intact, alert Psych: appropriate affect, appropriate insight DS: Data Data Completed and Pending Pending studies at discharge: Pending at discharge 11/01/24 17:15 Surgical [PTH] Routine Discharge Plan Discharge Anticipated Discharge Date/Time: 11/03/24 09:13 Patient Disposition: Home, Self-Care Discharge Diagnosis: Choledocholithiasis Referrals: Onesimo Moss MD [Primary Care Provider] - 1 Week Rashard Wesley MD [Physician] - 1 Week Discharge Medications: New oxycodone 5 mg Tablet 5 mg PO Q6H PRN (Reason: Pain, Moderate(Pain Scale 4-6)) 3 Days Qty: 10 0RF Rx Instructions: Partial Fill upon patient request. cefuroxime axetil 500 mg tablet 500 mg PO BID Qty: 10 0RF Continued amlodipine 2.5 mg tablet 2.5 mg PO DAILY mycophenolate mofetil 200 mg/mL suspension for reconstitution 1,500 mg PO BID lorazepam 1 mg tablet 0.5 mg PO BEDTIME PRN (Reason: Insomnia) bromfenac 0.09 % drops 1 drp ophthalmic-Right BID omeprazole 20 mg Tablet,Delayed Release (Dr/Ec) 20 mg PO DAILY@0630 Women's 50 Plus Multivitamin 400 mcg-500 mg calcium-20 mcg Tablet 1 tab PO DAILY Discharge Orders: Discharge Order (Routine); Ordered 11/03/24 Ordered By: Perez Hoff Diet: Advance to usual diet Activity on Discharge: As tolerated Stand Alone Forms: Patient Portal Discharge page Print Language: German Care Plan Goals: Recovery Health Concerns: Choledocholithiasis Plan of Treatment: 5 more days of Ceftin, follow up with surgery Assessment: See above
[2024-11-03] MEDS: MYCOPHENOLATE MOFETIL 200 MG/ML 1500 EACH PO (11:38)
[2024-11-03] MEDS: Lactated Ringers 1,000 ML 80 ML IVCONT (11:53)
[2024-11-03] MEDS: Enoxaparin Sodium 40 MG/0.4 ML SYRINGE SUBCUT (15:04)
[2024-11-03 15:24] VITALS: BP 135/77; PULSE 76; RESP 16; TEMP 36.9; O2SAT 94
--- NOTE | 2024-11-03 16:08 | P.PNGS_ITS ---
Subjective Subjective Date of Service: 11/03/24 Interval history: Patient was doing well. She is tolerating diet. She is ambulating. Skin output from ANA drain serosanguineous Physical Exam 2 Vital Signs: Vital Signs: Last Vital Signs Temp 98.4 F 11/03/24 15:24 Pulse 76 11/03/24 15:24 Resp 16 11/03/24 15:24 BP 135/77 11/03/24 15:24 Pulse Ox 94 11/03/24 15:24 O2 Del Method Room Air 11/03/24 15:24 O2 Flow Rate 3 11/02/24 07:25 BMI result Body Mass Index 31.9 GI: Other: Abdomen is all dressings clean dry and intact.. ANA uneventfully removed with occlusive dressing. Well-tolerated. Objective Data Active Medications Acetaminophen (Acetaminophen 325 Mg Tablet) 650 mg PO Q6H PRN PRN Reason: Pain, Mild 1-3,fever,headache Amlodipine Besylate (Amlodipine Besylate 2.5 Mg Tablet) 2.5 mg PO DAILY [facility]; Protocol Last Admin: 11/03/24 08:48 Dose: 2.5 mg Documented By: KATELYNN Calcium Carbonate (Calcium Carbonate 750 Mg Tab.Chew) 750 mg PO Q4H PRN PRN Reason: Heartburn Ceftriaxone Sodium (Ceftriaxone Sodium 1 Gm Vial) 1 gm IVPUSH Q24H [facility] Last Admin: 11/02/24 16:30 Dose: 1 gm Documented By: YOU Enoxaparin Sodium (Enoxaparin Sodium 40 Mg/0.4 Ml Syringe) 40 mg SUBCUT Q24H [facility] Last Admin: 11/03/24 15:04 Dose: 40 mg Documented By: KATELYNN Hydromorphone HCl (Hydromorphone Hcl 0.5 Mg/0.5 Ml Syringe) 0.5 mg IVPUSH Q3H PRN; Protocol PRN Reason: Pain, Severe (Pain Scale 7-10) Last Admin: 11/02/24 20:00 Dose: 0.5 mg Documented By: ANU Lorazepam (Lorazepam 0.5 Mg Tablet) 0.5 mg PO BEDTIME PRN PRN Reason: Insomnia Magnesium Hydroxide (Milk Of Magnesia 30 Ml Oral.Susp) 30 ml PO DAILY PRN PRN Reason: Constipation Melatonin (Melatonin 3 Mg Tablet) 6 mg PO BEDTIME PRN PRN Reason: Insomnia Metronidazole (Metronidazole 500 Mg Tablet) 500 mg PO Q8H [facility] Last Admin: 11/03/24 11:38 Dose: 500 mg Documented By: KATELYNN Multivitamins/Vitamin C (Multivitamin Tablet) 1 tab PO DAILY [facility] Last Admin: 11/03/24 08:49 Dose: 1 tab Documented By: KATELYNN Patient Own Medication ( Bromfenac 0.09 % Drops) 1 drop EYE-RIGHT BID [facility] Last Admin: 11/03/24 08:50 Dose: 1 drop Documented By: KATELYNN Patient Own Medication ( Mycophenolate Mofetil 200 Mg/Ml Suspension) 1,500 mg PO BID [facility] Last Admin: 11/03/24 11:38 Dose: 1,500 mg Documented By: KATELYNN Comments: Pt needs to take on an empty stomach, breakfast already served. Omeprazole (Omeprazole 20 Mg Capsule.) 20 mg PO DAILY@0630 [facility] Last Admin: 11/03/24 05:40 Dose: 20 mg Documented By: ANU Ondansetron HCl (Ondansetron Hcl 4 Mg/2 Ml Vial) 4 mg IVPUSH Q8H PRN PRN Reason: Nausea and Vomiting Oxycodone HCl (Oxycodone Hcl Immed Release 5 Mg Tablet) 5 mg PO Q6H PRN PRN Reason: Pain, Moderate(Pain Scale 4-6) Sodium Chloride (0.9 % Sodium Chloride Flush 3 Ml Syringe) 3 ml IVFLUSH QSHIFT [facility] Last Admin: 11/03/24 08:49 Dose: Not Given Documented By: KATELYNN Non-Admin Reason: IV Running Labs 11/02/24 06:07 11/02/24 06:07 Procedures Date of Service Date of Service: 11/03/24 Progress Note: A&P Assessment and plan (1) Status post laparoscopic cholecystectomy: Status: Acute Plan From a surgical perspective, patient was doing well. Discharge plan per hospitalist. Discharge instructions on discharge sheet Time Spent With Patient Time: Total time managing care of this patient today ____ minutes. Quality Stroke Does the patient have a stroke diagnosis?: No VTE Prior VTE?: No VTE Risk Level:: Medical - moderate - high VTE Device Contraindication: Treatment Not Indicated VTE Drug Contraindication: N/A - Med Ordered
--- NOTE | 2024-11-03 16:25 | MHC.CM.PN ---
PT TO DC HOME TODAY WITH NO SERVICES VIA PRIVATE TRANSPORT
== END 2024-11-03 16:24 | disposition home or self-care (01) | DRG 419 ==
LOC: HO.ED 15:05 → HO.EDOVER 17:54 → HO.S3 19:17
PROVIDERS: Internal Medicine; Physician Assistant Medical; Surgery; Admitting Provider Physician Assistant; Emergency Provider Emergency Medicine; PCP Internal Medicine; Visit Provider Internal Medicine
PROC: 0FCC8ZZ Extirpation of Matter from Ampulla of Vater, Via Natural or Artificial Opening Endoscopic (ICD-10-PCS; CPT 43260; principal; 2024-10-31 13:40)
PROC: 0FT44ZZ Resection of Gallbladder, Percutaneous Endoscopic Approach (ICD-10-PCS; CPT 47562; principal; 2024-11-01 13:50)
DX: K80.60 Calculus of gallbladder and bile duct with cholecystitis, unspecified, without obstruction (principal); I10 Essential (primary) hypertension; M32.9 Systemic lupus erythematosus, unspecified; Z20.822 Contact with and (suspected) exposure to COVID-19; Z79.899 Other long term (current) drug therapy
CPT/HCPCS: 0241U; 36415; 74177; 74181; 80048; 80053; 80076; 81001; 81003; 82150; 82248; 83690; 83735; 84484; 85025; 85027; 85610; 87507; 88304; 93005; 99285; J0131; J0330; J0696; J1100; J1171; J1610; J1650; J1836; J1885; J2003; J2250; J2270; J2405; J2704; J2795; J3010; J7120; Q9967

== ENCOUNTER → 2024-10-30 11:37 | Outpatient (BNV) | payer OTHER, SELFPAY | PROVIDERS: Emergency Provider Emergency Medicine; PCP Internal Medicine; Visit Provider Internal Medicine Cardiovascular Disease | DX: R94.31 Abnormal electrocardiogram [ECG] [EKG] (principal); R10.9 Unspecified abdominal pain | CPT/HCPCS: 93010 ==

== ENCOUNTER → 2024-10-30 11:38 | Outpatient (BNV) | payer OTHER, SELFPAY | PROVIDERS: Emergency Provider Emergency Medicine; PCP Internal Medicine; Visit Provider Radiology Diagnostic Radiology | DX: K81.9 Cholecystitis, unspecified (principal); R16.0 Hepatomegaly, not elsewhere classified; N28.1 Cyst of kidney, acquired | CPT/HCPCS: 74177; 74181 ==

== ENCOUNTER → 2024-10-30 12:29 | Outpatient (BNV) | payer OTHER, SELFPAY | PROVIDERS: Emergency Provider Emergency Medicine; PCP Internal Medicine; Visit Provider Surgery | DX: Z90.49 Acquired absence of other specified parts of digestive tract (principal) | CPT/HCPCS: 47562; 99024; 99222; 99232 ==

== ENCOUNTER → 2024-10-30 17:47 | Outpatient (BNV) | payer OTHER, SELFPAY | PROVIDERS: Admitting Provider Physician Assistant; Emergency Provider Emergency Medicine; PCP Internal Medicine; Visit Provider Physician Assistant | DX: K80.20 Calculus of gallbladder without cholecystitis without obstruction (principal) | CPT/HCPCS: 99223; 99233; 99239 ==

== ENCOUNTER 2024-11-12 14:30 | Outpatient (AMB) | payer OTHER, SELFPAY ==
--- NOTE | 2024-11-12 14:33 | MHC.OFFVIS ---
Vital Signs 11/12/24 14:34 Height 5 ft 3 in Weight 165 lb 5.547 oz BMI 29.3 BP 134/80 Blood Pressure Location Lt brachial Position Sitting Intake Visit Reasons: s/p cholecystitis Intake Note: Xochitl presents in the office as a follow up cholesystitis. CC: [employer] Required: No Allergies No Known Allergies Allergy (Verified 11/12/24 14:36) Medication List - Last Reconciled 11/12/24 by George Murrell MD amlodipine 2.5 mg PO DAILY bromfenac 0.09% 1 drp ophthalmic-Right BID lorazepam 0.5 mg PO BEDTIME PRN [id number] carb-K1 400 mcg-500 mg calcium-20 mcg (Women's 50 Plus Multivitamin) 1 tab PO DAILY mycophenolate mofetil 1,500 mg PO BID omeprazole 20 mg PO DAILY@0630 HPI HPI s/p cholecystitis: Details: 59 year old female here for a postop visit. She had undergone inpatient laparoscopic cholecystectomy with Dr. Wesley for acute cholecystitis with CBD stones last 11/01/2024. She tolerated the procedure well. She was discharged on November 03. She had been doing well since that time. She has good oral intake. She denies any problems with bowel movements. She feels well overall. [facility] Medical History History of nephrolithiasis Cataracts, bilateral Autoimmune disease Hypertension Surgical History Hx of cholecystectomy Hx of bilateral cataract extraction Hx of hernia repair Hx of colonoscopy History of partial hysterectomy Social History Household Members: Spouse Housing: House Do you presently have visiting nurse or other home services: No Patient Tobacco Use Status: Never used Tobacco Second Hand Smoke Exposure: No service: No Review of Systems Const Denies chills and Denies fever(s) Card Denies chest pain, Denies dyspnea and Denies dyspnea on exertion Resp Denies cough, Denies dyspnea and Denies dyspnea on exertion GI Denies hematochezia and Denies change in bowel habits Denies hematuria Musc Denies back pain and Denies limited range of motion Neuro Denies focal weakness and Denies convulsions Psych Denies depression and Denies mood swings Physical Exam Vital Signs: Last Vital Signs BP 134/80 11/12/24 14:34 BMI result Body Mass Index 29.3 Const Other: Looks well General: comfortable and no acute distress Eyes Other: Anicteric sclerae Resp Effort & Inspection: normal respiratory effort GI Other: All incisions clean and dry and well healed Palpation (GI): Soft to palpation, not firm, nontender and no guarding Assessment & Plan Assessment & Plan (1) Status post laparoscopic cholecystectomy: Code(s): Z90.49 - Acquired absence of other specified parts of digestive tract Category: Surgical Plan: She is doing well postoperatively after laparoscopic cholecystectomy done by Dr. Wesley. She has good oral intake and good GI functions I advised her to avoid any lifting more than 20 lb for about 3 more weeks. I wrote her a note stating that she can return to work with the restrictions starting 12/02/2024 She can otherwise follow up in the office on a p.r.n. basis. Coding Level of Care Code Global (37756) Diagnoses Status post laparoscopic cholecystectomy Z90.49
[2024-11-12 14:34] VITALS: BP 134/80; BMI 29.3
--- OUTSIDE RECORDS SUMMARY | 2024-11-12 17:21 | XMS_ITS ---
Author Organization [facility] Address [address] [facility] [address] [place] [id number] Care Team Providers Care Tooling Engineer Name Role Phone Onesimo Moss MD Primary Care Provider Nickolas Hale [phone] REASON FOR VISIT CBD STONES Encounters Encounter Location Date Provider Diagnosis [facility] [address] [place], [place] [id number] 10/31/2024 Nickolas Bruno Plan Of Treatment No Information Progress Notes * NELLA HOWELLIDOB:1965 ([age] yo F)Acc No.[id number]:10/31/2024 Progress Notes Patient:?RAIMUNDO HOWELL Provider:?Nickolas Bruno MD :1965???Age:59 Y???Sex:Female D ate:10/31/2024 Address:[address] [place] [address] [id number] Pcp:Onesimo Moss MD Subjective: * Chief Complaints: * ???1. CBD STONES. * Medical History:? Objective: * Vitals:? Assessment: Plan: * Treatment: * * The named appointment provid er may or may not be the originator of this progress note, and it is not deemed complete until electronically signed by the appointment provider. Sign off status: Pending * Provider:?Nickolas Bruno MD Date:? 025 Generated for Lonniei devon/Riki/eTransmitting on:?11/12/2024 05:20 PM EDT
--- OUTSIDE RECORDS SUMMARY | 2024-11-12 17:21 | XMS_ITS | Referral Summary ---
Author Organization [facility] Address [address] [place] [address] Care Team Providers Care Yarn Polishing Machine Operator Name Role Phone Unavailable Primary Care Provider [...] Administration Dates Next Due Covid-19, Pfizer, mRNA, [place] valent, PF 30 mcg/0.3 mL dose (for [...] on file Medical Devices Implanted Type Area Visitor Use Assistant Device Identifier Shelf Expiration Date Model / Serial / Lot Retisert Implanted:Qty: 1 on 10/05/2021 by Eddy Deleon MD at [facility] 12/21/2022 57552-821 -01 / [id number] / [id number] Insurance [facility] Advance Directives * Presumed Full Code (Latest Code Status on File) Date Activated Date Inactivated Comments 10/05/2021 10:29 AM 10/05/2021 2:19 PM
--- OUTSIDE RECORDS SUMMARY | 2024-11-12 17:21 | XMS_ITS | Patient Health Record ---
Author Organization [facility] Address [address] [place] [address] Care Team Providers Care Window Trimmer Apprentice Name Role Phone Onesimo Moss MD Primary Care Provider Nickolas Hale [phone] Results Component Value Reference Range Notes FL guidance in OR Reviewed date:11/01/2024 05:28:29 PM Interpretation: Performing Lab: Notes/Report: [address] [address] Fluoroscopy Report Signed Patient: Raimundo Charlton MR#: [id number] : 1965 Acct:[id number] Age/Sex: 59 / F ADM Date: 10/30/24 Loc: .S3 372-[address]: Perez Hoff MD Ordering Physician: Nickolas Bruno MD Date of Service: 10/31/24 Procedure(s): FL guidance in OR Accession Number(s): [id number] cc: Onesimo Moss MD; Nickolas Bruno MD EXAMINATION: FL GUIDANCE ONLY HISTORY: ERCP COMPARISON: Correlation is made with an MRCP dated 10/30/2024. TECHNIQUE: Fluoroscopy time: 4.3 minutes. Cumulative Dose: 115 mGy. DAP: 31.3 mGym2 Images: 12. FINDINGS: Images demonstrate a normal caliber common bile duct. No definite filling defects are identified. FL/FL guidance in OR IMPRESSION: Fluoroscopy during procedure. Please see procedure report for additional information. Electronically signed by: Nickolas Purdy MD 10/31/2024 03:13 PM EDT Dictated By: Nickolas Purdy MD Signed By: <Electronically signed by Nickolas Purdy MD in OV> 10/31/24 1512 DD/ 1345 TD/TT: 10/31/24 1450 Drophammer Operator: [address] [address] Fluoroscopy Report Signed Patient: Raimundo Charlton MR#: [id number] : 1965 Acct:[id number] Age/Sex: 59 / F ADM Date: 10/30/24 Loc: HO.S3 372-[address]: Brayden Hoff MD Ordering Physician: Nickolas Bruno MD Date of Service: 10/31/24 Procedure(s): FL guidance in OR Accession Number(s): [id number] cc: Onesimo Moss MD; Nickolas Bruno MD EXAMINATION: FL GUIDANCE ONLY HISTORY: ERCP COMPARISON: Correlation is made with an MRCP dated 10/30/2024. TECHNIQUE: Fluoroscopy time: 4. 3 minutes. Cumulative Dose: 115 mGy. DAP: 31.3 mGym2 Images: 12. FINDINGS: Images demonstrate a normal caliber common bile duct. No definite filling defects are identified. FL/FL guidance in OR IMPRESSION: Fluoroscopy during procedure. Please see procedure report for additional information. Electronically susan d by: Nickolas Purdy MD 10/31/2024 03:13 PM EDT Dictated By: Nickolas Purdy MD Signed By: <Electronically signed by Nickolas Purdy MD in OV> 10/31/24 1513 DD/ 1345 TD/TT: 10/31/24 1450 Drophammer Operator: Complete Blood Count Auto Di ff Reviewed date:11/01/2024 05:27:46 PM Interpretation: Performing Lab:[facility], [address] [place] [id number] Notes/Report: White Blood Count 11.0 4.8-10.8 X10*3/uL Red Blood Count 4.10 4.20-5.50 X10*6/uL Hemoglobin 11.9 12.0-16.0 g/dl Hematocrit 36.6 37.0-47.0 % Mean Corpuscular Volume 89.3 80.0-98.0 fL Mean Corpuscular Hemoglobin 29.0 27.0-33.0 pg Mean Corpuscular HGB Conc 32.5 31.0-35.0 g/dl Red Cell Distribution Width 12.8 11.0-16.0 % Platelet Count 272 160-400 X10*3/uL Mean Platelet Volume 10.7 9.4-12.3 fL Neutrophils Percent Auto 86.9 45-73 % Imm Gran Pct Auto 0.5 0.0-0.4 % Lymphocytes Percent Auto 6.9 20-40 % Monocytes Percent Auto 5.6 2-11 % Eosinophils Percent Auto 0.0 0-4 % Basophils Percent Auto 0.1 0-2 % NRBC Pct Auto 0.0 0.0-0.2 /100WBC Neutrophils Absolute Auto 9.6 2.0-8.3 x10*3/u L Imm Gran Abs Auto 0.06 0.00-0.03 X10*3/uL Lymphocytes Absolute Auto 0.8 1.2-4.9 X10*3/u L Monocytes Absolute Auto 0.6 0.1-1.2 X10*3/uL Eosinophils Absolute Auto 0.0 0.0-0.4 X10*3/u L Basophils Absolute Auto 0.0 0.0-0.2 X10*3/uL NRBC Abs Auto 0.000 0.0-0.012 X10*3/uL Liver Panel Reviewed date:11/01/2024 05:27:25 PM Interpretation: Performing Lab:[address] [address] Notes/Report: Bilirubin Total 3.6 0.0-1.0 mg/dL Slight Icte bobo. Bilirubin Direct 2.8 0.0-0.5 mg/dL Slight Ict erus. Aspartate Amino Transferase 600 5-31 U/L Alanine Aminotransferase 871 0-31 U/L Total Protein 6.2 6.5-8.0 g/dL Albumin Level 3.3 3.5-5.0 g/dL Alkaline Phosphatase 566 39-117 U/L Basic Metabolic Panel Fastin g Reviewed date:11/01/2024 05:27:13 PM Interpretation: Performing Lab:[address] [address] Notes/Report: Sodium 145 135-145 mmol/L Potassium 3.7 3.3-5.1 mmol/L Chloride 110 96-108 mmol/L Carbon Dioxide 28 22-29 mmol/L Anion Gap 11 12-20 Blood Urea Nitrogen 17 9-16 mg/dL Creatinine 0.52 0.5-1.4 mg/dL Creatinine Clr Calc Pharmacy 117.8 Provided height and weight: 160.02 cm, 81.647 kg. eGFR (calculated from the MDRD study equation) and eCrCl (calculated from the Cockcroft-Gault equation) are based on different parameters and may not yield comparable results. If eCrCl result is absurd, please check patient's height/weight. Estimated Glomerular Filt Rate > 60 Chronic Kidney Disease: Estimated GFR < 60 mL/min/1.73m2 Severe Kidney Disease: Estimated GFR < 15 mL/min/1.73m2 Glucose Fasting 110 60-99 mg/dL A fasting glucose from 100-125 mg/dl is considered impaired (pre-diabetes). Calcium 9.4 8.4-10.2 mg/dL Reason For Referral No Information Encounters Encounter Location Date Provider Diagnosis [facility] Outpatient [address] [place] [phone] 10/31/2024 Nickolas Bruno [facility] [address] [place] [address] 11/07/2024 Nickolas Bruno Plan Of Treatment No Information Insurance Providers Payer Name Payer Address Payer Phone Subscriber Number Group Number Insured Name Patient Relationship to Insured Coverage Start Date Coverage End Date [facility] [address] [address] [place] [address] [id number] RAIMUNDO CHARLTON Self - patient is the insured
--- OUTSIDE RECORDS SUMMARY | 2024-11-12 17:21 | XMS_ITS ---
Author Organization [facility] Address [address] [place] [address] Care Team Providers Care Flight Operations Coordinator Name Role Phone Onesimo Moss MD Primary Care Provider Nickolas Hale [phone] Encounters Encounter Location Date Provider Diagnosis [facility] [address] [place] [phone] 11/07/2024 Nickolas Bruno Plan Of Treatment No Information Progress Notes * NELLA HOWELLLORYB:1965 ([age] yo F)Acc No.[id number]:11/07/2024 Patient:?NELLA HOWELLI :1965???Age:59 Y???Sex:Female Address:[address] [place] [address] Masoud garridoyBONG, [id number] * true * Date:? Generated for Bhavik osorio/Riki/eThenrysmitting on:?11/12/2024 05:21 PM EDT
--- OUTSIDE RECORDS SUMMARY | 2024-11-12 17:21 | XMS_ITS | Clinical Summary ---
Author Organization [facility] Address [address] [place] [address] Care Team Providers Care Vocational Nurse Name Role Phone Unavailable Primary Care Provider [...] Administration Dates Next Due Covid-19, Pfizer, mRNA, [place] valent, PF 30 mcg/0.3 mL dose (for [...] series) 2040 Medical Devices Implanted Type Area Cook Helper Meat Device Identifier Shelf Expiration Date Model / Serial / Lot Retisert Implanted:Qty: 1 on 10/05/2021 by Eddy Deleon MD at [facility] 12/21/2022 [id number] -01 / [id number] / [id number] Insurance [facility] Advance Directives * Presumed Full Code (Latest Code Status on File) Date Activated Date Inactivated Comments 10/05/2021 10:29 AM 10/05/2021 2:19 PM
== END 2024-11-12 15:07 | disposition home or self-care (01) ==
PROVIDERS: PCP Internal Medicine; Visit Provider Surgery
DX: Z90.49 Acquired absence of other specified parts of digestive tract (principal)
CPT/HCPCS: 99024